=== PATIENT | male | born 1955 | race Caucasian/White ===

== ENCOUNTER 2018-10-18 09:22 | Inpatient (IN) ==
--- NOTE | 2018-10-18 09:47 | Emergency Department Note ---
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 The patient reports he does not have history of blood clot in the lung. He denies alcohol, tobacco, or drug use. Per EMS: The patient is diaphoretic. He has history of hypertension and boarder line diabetes. His leg has been hurting him for months. The patient has not been able to lay flat. Home Medications Home Medications Medication Instructions Recorded Confirmed Type aspirin 81 mg PO DAILY 10/18/18 10/18/18 History atenolol 50 mg PO DAILY 10/18/18 10/18/18 History dimenhydrinate [Dramamine] 50 mg PO Q8H PRN 10/18/18 10/18/18 History hydrocodone-acetaminophen 1 tab PO Q6H PRN 10/18/18 10/18/18 History lisinopril 20 mg PO DAILY 10/18/18 10/18/18 History naproxen 250 mg PO BID PRN 10/18/18 10/18/18 History Allergies Allergy/AdvReac Type Severity Reaction Status Date / Time No Known Allergies Allergy Unverified 10/18/18 10:31 Past Med/Surg History Medical History Chronic back pain (Chronic) Pre-diabetes (Chronic) HTN (hypertension) (Chronic) Surgical History S/P tonsillectomy (Chronic) Family History Other Diabetes Heart disease Social History Preferred Language: Khmer Communication Ability: Unable 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 and A total of 10 systems reviewed and were otherwise negative Physical Exam Vital Signs Vital Signs - 24 hr 10/18/18 09:25 10/18/18 09:29 10/18/18 09:33 Temperature 37 C Temperature Source Oral Sepsis Recent Fever Within 48 Hours No Sepsis New/Unexplained Change in Mental Status No Sepsis Action Taken by Nursing No Action Required Pulse Rate 76 80 84 Pulse Rate [Apical] Pulse Rate from SpO2 Sensor 80 84 Respiratory Rate 18 29 H 28 H Respiratory Effort / Characteristics Non-Labored Respiratory Depth Normal Blood Pressure 155/95 H 155/95 H Blood Pressure [Left Arm] Blood Pressure Mean 115 115 Blood Pressure Mean [Left Arm] Pulse Oximetry 98 93 98 Oxygen Delivery Method Room Air Fraction of Inspired Oxygen SaO2/FiO2 Ratio 10/18/18 09:45 10/18/18 09:46 10/18/18 09:53 Temperature Temperature Source Sepsis Recent Fever Within 48 Hours Sepsis New/Unexplained Change in Mental Status Sepsis Action Taken by Nursing Pulse Rate 76 74 70 Pulse Rate [Apical] Pulse Rate from SpO2 Sensor 77 73 Respiratory Rate 24 24 26 H Respiratory Effort / Characteristics Spontaneous Labored Respiratory Depth Normal Blood Pressure 128/97 Blood Pressure [Left Arm] Blood Pressure Mean 107 Blood Pressure Mean [Left Arm] Pulse Oximetry 88 L 95 95 Oxygen Delivery Method Fraction of Inspired Oxygen 50 SaO2/FiO2 Ratio 10/18/18 10:00 10/18/18 10:11 10/18/18 10:12 Temperature Temperature Source Sepsis Recent Fever Within 48 Hours Sepsis New/Unexplained Change in Mental Status Sepsis Action Taken by Nursing Pulse Rate 70 Pulse Rate [Apical] Pulse Rate from SpO2 Sensor Respiratory Rate 26 H Respiratory Effort / Characteristics Respiratory Depth Blood Pressure Blood Pressure [Left Arm] Blood Pressure Mean Blood Pressure Mean [Left Arm] Pulse Oximetry 100 100 Oxygen Delivery Method BiPAP BiPAP Fraction of Inspired Oxygen 40 SaO2/FiO2 Ratio 250 10/18/18 10:15 10/18/18 10:22 10/18/18 10:30 Temperature Temperature Source Sepsis Recent Fever Within 48 Hours Sepsis New/Unexplained Change in Mental Status Sepsis Action Taken by Nursing Pulse Rate 69 67 67 Pulse Rate [Apical] Pulse Rate from SpO2 Sensor 68 67 69 Respiratory Rate 21 25 H 21 Respiratory Effort / Characteristics Respiratory Depth Blood Pressure 101/77 Blood Pressure [Left Arm] Blood Pressure Mean 85 Blood Pressure Mean [Left Arm] Pulse Oximetry 98 98 90 Oxygen Delivery Method Fraction of Inspired Oxygen SaO2/FiO2 Ratio 10/18/18 10:32 10/18/18 10:45 10/18/18 11:00 Temperature Temperature Source Sepsis Recent Fever Within 48 Hours Sepsis New/Unexplained Change in Mental Status Sepsis Action Taken by Nursing Pulse Rate 67 64 Pulse Rate [Apical] 63 Pulse Rate from SpO2 Sensor 70 88 Respiratory Rate 27 H 22 22 Respiratory Effort / Characteristics Respiratory Depth Blood Pressure 110/85 Blood Pressure [Left Arm] 98/68 L Blood Pressure Mean 93 Blood Pressure Mean [Left Arm] 78 Pulse Oximetry 92 Oxygen Delivery Method BiPAP Fraction of Inspired Oxygen SaO2/FiO2 Ratio 10/18/18 11:26 10/18/18 11:31 10/18/18 11:40 Temperature Temperature Source Sepsis Recent Fever Within 48 Hours Sepsis New/Unexplained Change in Mental Status Sepsis Action Taken by Nursing Pulse Rate 63 Pulse Rate [Apical] 65 68 Pulse Rate from SpO2 Sensor Respiratory Rate 21 20 20 Respiratory Effort / Characteristics Non-Labored Spontaneous Respiratory Depth Normal Blood Pressure Blood Pressure [Left Arm] 98/68 L 82/67 L Blood Pressure Mean Blood Pressure Mean [Left Arm] 78 72 Pulse Oximetry 94 90 Oxygen Delivery Method BiPAP BiPAP Fraction of Inspired Oxygen 40 SaO2/FiO2 Ratio 10/18/18 12:00 Temperature Temperature Source Sepsis Recent Fever Within 48 Hours Sepsis New/Unexplained Change in Mental Status Sepsis Action Taken by Nursing Pulse Rate Pulse Rate [Apical] 67 Pulse Rate from SpO2 Sensor Respiratory Rate 30 H Respiratory Effort / Characteristics Respiratory Depth Blood Pressure Blood Pressure [Left Arm] 118/89 Blood Pressure Mean Blood Pressure Mean [Left Arm] 98 Pulse Oximetry Oxygen Delivery Method BiPAP Fraction of Inspired Oxygen SaO2/FiO2 Ratio GENERAL: The patient is awake and alert. He is very anxious appearing. He is diaphoretic and cyanotic. EYES: The conjunctivae are clear. The pupils are round and reactive. EARS, NOSE, MOUTH AND THROAT: The nose is without any evidence of any deformity. Mucous membranes are moist tongue is midline NECK: The neck is nontender and supple. RESPIRATORY: Shallow respirations were noted. There were diminished breath sounds noted throughout with rales in all lung dunlap. There is very poor air movement noted. CARDIOVASCULAR: Regular rate and rhythm noted there no murmurs rubs or gallops normal S1 normal S2 GASTROINTESTINAL: The abdomen is soft. Bowel sounds are present in all quadrants. Abdomen is nontender MUSCULOSKELETAL/EXTREMITIES: There is no evidence of gross deformity full range of motion is noted in the hips and shoulders SKIN: Peripheral cyanosis was noted. There is pedal edema bilaterally with cyanosis in the lower extremities. Edema appears to go the majority of both lower extremities. There is also abdominal wall edema. There are excoriations and sores over both lower extremities. NEUROLOGIC: Patient is awake alert and oriented x3. Course 0929: The patient was evaluated in room A9B but was moved to room A1 due to patient acuity. A complete history and physical exam was performed. 1053: Upon reevaluation, the patient is resting comfortably. I discussed laboratory and radiographic results with him. The patient verbalized agreement of the treatment plan. The patient will be evaluated for further management and care. 1105: I discussed the patients case with Dr. Casey, [facility]. 1113: I discussed the patients case with Shaheen Bullock. 1237: The patient suffered a cardiac arrest and required intubation with the ICU team. 1259: I discussed the patient's case with Dr. Rodriguez, Neurology. He agrees with the transfer. Consultations Consultation #1: I discussed the patients case with Dr. Casey, [facility]. Time: 11:05 Consultation #2: I discussed the patients case with Shaheen Bullock. Time: 11:13 Consultation #3: I discussed the patient's case with Dr. Rodriguez, Neurology. He agrees with the transfer. Time: 12:59 Administered Medications Discontinued Medications Fentanyl Citrate (Fentanyl Citrate) 50 mcg IV Q2H PRN PRN Reason: Moderate Pain (4,5,6) Stop: 11/01/18 20:35 Last Admin: 10/19/18 03:59 Dose: 50 mcg Documented by: [id number] Admin: 10/18/18 23:23 Dose: 50 mcg Documented by: [id number] Furosemide (Lasix) Confirm Administered Dose 40 mg IV .STK-MED ONE Stop: 10/18/18 11:28 Last Admin: 10/18/18 11:29 Dose: 40 mg Documented by: [id number] Lorazepam (Ativan) 1 mg in 2 mls @ 2 mls/min IV NOW STA Stop: 10/18/18 10:33 Last Admin: 10/18/18 10:36 Dose: 2 mls/min Documented by: [id number] Furosemide 40 mg/ Syringe 4 mls @ 4 mls/min IV ONE ONE Stop: 10/18/18 11:08 Last Admin: 10/18/18 11:32 Dose: Not Given Documented by: [id number] Sodium Chloride (Nss 1000ml) 1,000 mls @ 999 mls/hr IV .Q1H1M DEVEN Stop: 10/18/18 13:15 Last Infusion: 10/18/18 13:15 Dose: 0 mls/hr Documented by: [id number] Admin: 10/18/18 12:08 Dose: 999 mls/hr Documented by: [id number] Vancomycin HCl 2,500 mg/ (Sodium Chloride) 550 mls @ 200 mls/hr IV ONE ONE Stop: 10/18/18 15:14 Last Infusion: 10/18/18 15:50 Dose: 0 mls/hr Documented by: [id number] Admin: 10/18/18 13:00 Dose: 200 mls/hr Documented by: [id number] Piperacillin Sod/Tazobactam (Sod 4.5 gm/ Dextrose) 120 mls @ 200 mls/hr IV ONE ONE; Protocol Stop: 10/18/18 13:05 Last Infusion: 10/18/18 13:35 Dose: 0 mls/hr Documented by: [id number] Admin: 10/18/18 13:00 Dose: 200 mls/hr Documented by: [id number] Norepinephrine Bitartrate 8 mg (/ Dextrose) 508 mls @ 32.92 mls/hr IV .[id number] DEVEN; Protocol Stop: 11/17/18 13:08 Last Titration: 10/18/18 22:53 Dose: 0.08 mcg/kg/min, 32.9 mls/hr Documented by: [id number] Titration: 10/18/18 20:19 Dose: 0.1 mcg/kg/min, 41.2 mls/hr Documented by: [id number] Titration: 10/18/18 19:17 Dose: 0.025 mcg/kg/min, 10.3 mls/hr Documented by: [id number] Cosigned by: [id number] Titration: 10/18/18 17:55 Dose: 0.025 mcg/kg/min, 10.3 mls/hr Documented by: [id number] Admin: 10/18/18 15:12 Dose: 0.1 mcg/kg/min, 41.2 mls/hr Documented by: [id number] Cosigned by: [id number] Sodium Bicarbonate 150 meq/ (Dextrose) 1,150 mls @ 100 mls/hr IV .[id number] DEVEN Stop: 11/17/18 13:29 Last Admin: 10/19/18 00:33 Dose: 100 mls/hr Documented by: [id number] Infusion: 10/19/18 00:33 Dose: 100 mls/hr Documented by: [id number] Infusion: 10/18/18 19:17 Dose: 100 mls/hr Documented by: [id number] Admin: 10/18/18 15:13 Dose: 100 mls/hr Documented by: [id number] Epinephrine HCl 4 mg/ Dextrose 254 mls @ 123.44 mls/hr IV .Q2H4M DEVEN; Protocol Stop: 11/17/18 13:25 Last Titration: 10/18/18 23:18 Dose: 0.25 mcg/kg/min, 102.9 mls/hr Documented by: [id number] Titration: 10/18/18 21:28 Dose: 0.3 mcg/kg/min, 123.4 mls/hr Documented by: [id number] Titration: 10/18/18 20:19 Dose: 0.3 mcg/kg/min, 123.4 mls/hr Documented by: [id number] Titration: 10/18/18 19:17 Dose: 0.25 mcg/kg/min, 102.9 mls/hr Documented by: [id number] Cosigned by: [id number] Admin: 10/18/18 19:12 Dose: 0.2 mcg/kg/min, 82.3 mls/hr Documented by: [id number] Cosigned by: [id number] Titration: 10/18/18 19:12 Dose: 0.2 mcg/kg/min, 82.3 mls/hr Documented by: [id number] Cosigned by: [id number] Titration: 10/18/18 17:55 Dose: 0.2 mcg/kg/min, 82.3 mls/hr Documented by: [id number] Admin: 10/18/18 16:22 Dose: 0.1 mcg/kg/min, 41.2 mls/hr Documented by: [id number] Titration: 10/18/18 16:22 Dose: 0.1 mcg/kg/min, 41.2 mls/hr Documented by: [id number] Admin: 10/18/18 13:25 Dose: 0.02 mcg/kg/min, 8.2 mls/hr Documented by: [id number] Cosigned by: [id number] Propofol (Diprivan) 1,000 mg in 100 mls @ 3.24 mls/hr IV .Q24H DEVEN; Protocol Stop: 10/21/18 13:59 Last Titration: 10/18/18 21:25 Dose: 5 mcg/kg/min, 3.2 mls/hr Documented by: [id number] Titration: 10/18/18 19:17 Dose: 5 mcg/kg/min, 3.2 mls/hr Documented by: [id number] Cosigned by: [id number] Admin: 10/18/18 15:13 Dose: 5 mcg/kg/min, 3.2 mls/hr Documented by: [id number] Cosigned by: [id number] Piperacillin Sod/Tazobactam (Sod 4.5 gm/ Dextrose) 120 mls @ 30 mls/hr IV Q8H DEVEN; Protocol Stop: 10/20/18 12:59 Last Admin: 10/19/18 02:03 Dose: 30 mls/hr Documented by: [id number] Infusion: 10/18/18 20:01 Dose: 30 mls/hr Documented by: [id number] Infusion: 10/18/18 19:17 Dose: 30 mls/hr Documented by: [id number] Admin: 10/18/18 16:00 Dose: 30 mls/hr Documented by: [id number] Vasopressin 20 units/ Sodium (Chloride) 101 mls @ 12.12 mls/hr IV .Q8H20M DEVEN Stop: 11/17/18 15:14 Last Admin: 10/19/18 00:33 Dose: 0.04 unit/min, 12.1 mls/hr Documented by: [id number] Cosigned by: [id number] Infusion: 10/19/18 00:31 Dose: 0.04 unit/min, 12.1 mls/hr Documented by: [id number] Infusion: 10/18/18 23:05 Dose: 0.04 unit/min, 12.1 mls/hr Documented by: [id number] Infusion: 10/18/18 19:17 Dose: 0.04 unit/min, 12.1 mls/hr Documented by: [id number] Cosigned by: [id number] Admin: 10/18/18 16:00 Dose: 0.04 unit/min, 12.1 mls/hr Documented by: [id number] Cosigned by: [id number] Dobutamine HCl/Dextrose (Dobutamine / D5w) 500 mg in 250 mls @ 16.2 mls/hr IV .[id number] DEVEN; Protocol Stop: 11/17/18 15:27 Last Titration: 10/19/18 01:37 Dose: 5 mcg/kg/min, 16.2 mls/hr Documented by: [id number] Cosigned by: [id number] Titration: 10/18/18 19:17 Dose: 5 mcg/kg/min, 16.2 mls/hr Documented by: [id number] Cosigned by: [id number] Admin: 10/18/18 16:00 Dose: 5 mcg/kg/min, 16.2 mls/hr Documented by: [id number] Cosigned by: [id number] Calcium Chloride 1,000 mg/ (Sodium Chloride) 60 mls @ 240 mls/hr IV NOW STA Stop: 10/18/18 20:28 Last Infusion: 10/18/18 20:56 Dose: 240 mls/hr Documented by: [id number] Admin: 10/18/18 20:41 Dose: 240 mls/hr Documented by: [id number] Ascorbic Acid 1,500 mg/Thiamine HCl 100 mg/ Sodium Chloride 104 mls @ 207 mls/hr IV Q6H [facility] Stop: 10/22/18 15:31 Last Infusion: 10/19/18 02:34 Dose: 207 mls/hr Documented by: [id number] Admin: 10/19/18 02:03 Dose: 207 mls/hr Documented by: [id number] Infusion: 10/18/18 21:36 Dose: 207 mls/hr Documented by: [id number] Admin: 10/18/18 21:05 Dose: 207 mls/hr Documented by: [id number] Hydrocortisone Sodium (Succinate 50 mg/ Syringe) 1 mls @ 4 mls/min IV Q6H DEVEN Stop: 11/18/18 02:59 Last Admin: 10/19/18 02:03 Dose: 4 mls/min Documented by: [id number] Acetaminophen (Ofirmev) 1,000 mg in 100 mls @ 400 mls/hr IV Q8H PRN PRN Reason: Fever Stop: 11/17/18 20:43 Last Infusion: 10/18/18 22:32 Dose: 400 mls/hr Documented by: [id number] Admin: 10/18/18 22:17 Dose: 400 mls/hr Documented by: [id number] Hydrocortisone Sodium (Succinate 100 mg/ Syringe) 2 mls @ 4 mls/min IV NOW STA Stop: 10/18/18 21:43 Last Admin: 10/18/18 21:46 Dose: 4 mls/min Documented by: [id number] Calcium Chloride 1,000 mg/ (Sodium Chloride) 60 mls @ 240 mls/hr IV NOW STA Stop: 10/19/18 01:12 Last Infusion: 10/19/18 01:38 Dose: 240 mls/hr Documented by: [id number] Admin: 10/19/18 01:23 Dose: 240 mls/hr Documented by: [id number] Morphine Sulfate (Morphine Sulf/Nss) 100 mg in 100 mls @ 0 mls/hr IV .Q0M DEVEN; Protocol Stop: 11/02/18 04:59 Last Admin: 10/19/18 05:29 Dose: 2 mg/hr, 2 mls/hr Documented by: [id number] Cosigned by: [id number] Lorazepam (Ativan) 0.5 mg in 1 mls @ 0.5 mls/min IV UD PRN PRN Reason: Anxiety/Agitation Stop: 11/18/18 05:08 Last Admin: 10/19/18 05:28 Dose: 0.5 mls/min Documented by: [id number] Ioversol (Optiray 320 125ml) 120 ml IV ONCE PRN PRN Reason: Interaction Checking Stop: 10/22/18 11:47 Last Admin: 10/18/18 11:49 Dose: 120 ml Documented by: [id number] Midazolam HCl (Versed) 2 mg IV Q2H PRN PRN Reason: agitation/anxiety Stop: 11/17/18 20:35 Last Admin: 10/19/18 02:03 Dose: 1 mg Documented by: [id number] Miscellaneous () Confirm Administered Dose 1 ea .ROUTE .STK-MED ONE Stop: 10/18/18 12:20 Last Admin: 10/18/18 12:30 Dose: 1 ea Documented by: [id number] Propofol (Diprivan) Confirm Administered Dose 200 mg IV .STK-MED ONE Stop: 10/18/18 12:21 Last Admin: 10/18/18 12:30 Dose: Not Given Documented by: [id number] Propofol (Diprivan) Confirm Administered Dose 1,000 mg IV .STK-MED ONE Stop: 10/18/18 12:27 Last Admin: 10/18/18 12:45 Dose: Not Given Documented by: [id number] Sodium Bicarbonate (Sodium Bicarbonate 8.4%) 50 meq IV NOW STA Stop: 10/18/18 15:01 Last Admin: 10/18/18 15:13 Dose: 50 meq Documented by: [id number] Sodium Bicarbonate (Sodium Bicarbonate 8.4%) 50 meq IV NOW STA Stop: 10/18/18 15:02 Last Admin: 10/18/18 15:13 Dose: 50 meq Documented by: [id number] Sodium Bicarbonate (Sodium Bicarbonate 8.4%) 100 meq IV NOW STA Stop: 10/18/18 20:13 Last Admin: 10/18/18 20:19 Dose: 100 meq Documented by: [id number] Sodium Bicarbonate (Sodium Bicarbonate 8.4%) Confirm Administered Dose 100 meq .ROUTE .STK-MED ONE Stop: 10/18/18 20:16 Last Admin: 10/18/18 20:25 Dose: 100 meq Documented by: [id number] Sodium Bicarbonate (Sodium Bicarbonate 8.4%) 100 meq IV NOW STA Stop: 10/19/18 00:09 Last Admin: 10/19/18 00:33 Dose: 100 meq Documented by: [id number] Sodium Bicarbonate (Sodium Bicarbonate 8.4%) Confirm Administered Dose 50 meq .ROUTE .STK-MED ONE Stop: 10/19/18 00:13 Last Admin: 10/19/18 00:33 Dose: 50 meq Documented by: [id number] Medical Decision Making Differential Diagnosis Differential diagnosis: Etiologies such as infections, reactive airway disease, COPD, pneumonia, pleural effusion, pulmonary edema, ARDS, pneumothorax, CHF, cardiac ischemia, cardiac tamponade, dysrhythmia, anemia, pulmonary embolism, musculoskeletal, gastrointestinal process, as well as others were entertained. Medical Records Attestation: I reviewed the patient's medical records. Home Medications Current Medication List: was personally reviewed by me (No known home medicati ons ) Laboratory Data Attestation: I reviewed the patient's lab results. Result diagrams: 10/19/18 04:06 10/19/18 04:06 Lab Results 10/18/18 10/18/18 10/18/18 Range/Units 10:08 10:08 10:08 WBC 11.47 H (4.8-10.8) K/uL RBC 6.03 (4.7-6.1) M/uL Hgb 14.6 (14.0-18.0) g/dL Hct 47.3 (42-52) % MCV 78.4 L (80-100) fL MCH 24.2 L (25-34) pg MCHC 30.9 L (32-36) g/dL RDW Std Deviation 50.1 H (36.4-46.3) fL RDW Coeff of Lauro 17.8 H (11.5-14.5) % Plt Count 195 (130-400) K/uL MPV 10.5 H (7.4-10.4) fL Neutrophils % (Manual) 83.5 % Lymphocytes % (Manual) 4.3 % Monocytes % (Manual) 6.1 % Metamyelocytes % (Man) 6.1 % Neutrophils # (Manual) 9.58 H (1.4-6.5) K/uL Total Absolute Neuts 9.58 H (1.4-6.5) K/uL Lymphocytes # (Manual) 0.49 L (1.2-3.4) K/uL Total Abs Lymphocytes 0.49 L (1.2-3.4) K/uL Monocytes # (Manual) 0.70 H (0.11-0.59) K/uL Metamyelocytes # (Man) 0.70 H (0-0) K/uL RBC Morphology Unremarkable ESR (0-14) mm/hr PT 18.8 H (9.0-12.0) Seconds INR 1.9 H (0.9-1.1) APTT 31.9 H (21.0-31.0) Seconds PTT Ratio 1.2 VBG pH (7.36-7.41) VBG pCO2 (38-50) mmHg VBG pO2 mmHg VBG HCO3 mmol/L VBG O2 Saturation % VBG Base Excess mEq/L Barometric Pressure mm/Hg Sodium (136-145) mmol/L Potassium (3.5-5.1) mmol/L Chloride (98-107) mmol/L Carbon Dioxide (21-32) mmol/L Anion Gap (3-11) BUN (7-18) mg/dl Creatinine (0.6-1.4) mg/dl Est Cr Clr Drug Dosing ml/min Est GFR ( Amer) Est GFR (Non-Af Amer) BUN/Creatinine Ratio (10-20) Glucose (70-99) mg/dl Lactate 10.3 H* (0.4-2.0) mmol/L Calcium (8.5-10.1) mg/dl Phosphorus (2.5-4.9) mg/dl Magnesium (1.8-2.4) mg/dl Total Bilirubin (0.2-1) mg/dl AST (15-37) U/L ALT (12-78) U/L Alkaline Phosphatase (45-117) U/L Total Creatine Kinase (39-308) U/L CK-MB (CK-2) (0.5-3.6) ng/ml CK/CKMB % Calc (0-3.0) Troponin I (0-0.045) ng/ml C-Reactive Protein (0-0.29) mg/dl NT-Pro-B Natriuret Pep (0-900) pg/ml Total Protein (6.4-8.2) gm/dl Albumin (3.4-5.0) gm/dl Globulin (2.5-4.0) gm/dl Albumin/Globulin Ratio (0.9-2) Procalcitonin (0-0.5) ng/ml Urine Color Urine Appearance (Clear) Urine pH (4.5-7.5) Ur Specific [place] (1.000-1.030) Urine Protein (Negative) Urine Glucose (UA) (Negative) Urine Ketones (Negative) Urine Blood (Negative) Urine Nitrite (Negative) Urine Bilirubin (Negative) Urine Urobilinogen (Negative) Ur Leukocyte Esterase (Negative) Urine WBC (Auto) (0-5) /hpf Urine RBC (Auto) (0-4) /hpf U Hyaline Cast (Auto) (0-5) /lpf U Epithel Cells (Auto) (0-5) /lpf Urine Bacteria (Auto) (Negative) 10/18/18 10/18/18 10/18/18 Range/Units 10:08 10:08 10:08 WBC (4.8-10.8) K/uL RBC (4.7-6.1) M/uL Hgb (14.0-18.0) g/dL Hct (42-52) % MCV (80-100) fL MCH (25-34) pg MCHC (32-36) g/dL RDW Std Deviation (36.4-46.3) fL RDW Coeff of Lauro (11.5-14.5) % Plt Count (130-400) K/uL MPV (7.4-10.4) fL Neutrophils % (Manual) % Lymphocytes % (Manual) % Monocytes % (Manual) % Metamyelocytes % (Man) % Neutrophils # (Manual) (1.4-6.5) K/uL Total Absolute Neuts (1.4-6.5) K/uL Lymphocytes # (Manual) (1.2-3.4) K/uL Total Abs Lymphocytes (1.2-3.4) K/uL Monocytes # (Manual) (0.11-0.59) K/uL Metamyelocytes # (Man) (0-0) K/uL RBC Morphology ESR 16 H (0-14) mm/hr PT (9.0-12.0) Seconds INR (0.9-1.1) APTT (21.0-31.0) Seconds PTT Ratio VBG pH 7.12 L (7.36-7.41) VBG pCO2 47 (38-50) mmHg VBG pO2 31 mmHg VBG HCO3 15 mmol/L VBG O2 Saturation < 60.0 % VBG Base Excess -14.2 mEq/L Barometric Pressure 732.5 mm/Hg Sodium 137 (136-145) mmol/L Potassium 4.2 (3.5-5.1) mmol/L Chloride 104 (98-107) mmol/L Carbon Dioxide 16 L (21-32) mmol/L Anion Gap 18.0 H (3-11) BUN 25 H (7-18) mg/dl Creatinine 1.64 H (0.6-1.4) mg/dl Est Cr Clr Drug Dosing 53.3 ml/min Est GFR ( Amer) 50.5 Est GFR (Non-Af Amer) 43.5 BUN/Creatinine Ratio 15.1 (10-20) Glucose 134 H (70-99) mg/dl Lactate (0.4-2.0) mmol/L Calcium 8.7 (8.5-10.1) mg/dl Phosphorus 5.4 H (2.5-4.9) mg/dl Magnesium 2.0 (1.8-2.4) mg/dl Total Bilirubin 2.2 H (0.2-1) mg/dl AST 28 (15-37) U/L ALT 21 (12-78) U/L Alkaline Phosphatase 64 (45-117) U/L Total Creatine Kinase 121 (39-308) U/L CK-MB (CK-2) 5.5 H (0.5-3.6) ng/ml CK/CKMB % Calc 4.5 H (0-3.0) Troponin I 0.901 H* (0-0.045) ng/ml C-Reactive Protein 6.78 H (0-0.29) mg/dl NT-Pro-B Natriuret Pep > [id number] H (0-900) pg/ml Total Protein 7.2 (6.4-8.2) gm/dl Albumin 3.5 (3.4-5.0) gm/dl Globulin 3.7 (2.5-4.0) gm/dl Albumin/Globulin Ratio 0.9 (0.9-2) Procalcitonin (0-0.5) ng/ml Urine Color Urine Appearance (Clear) Urine pH (4.5-7.5) Ur Specific [place] (1.000-1.030) Urine Protein (Negative) Urine Glucose (UA) (Negative) Urine Ketones (Negative) Urine Blood (Negative) Urine Nitrite (Negative) Urine Bilirubin (Negative) Urine Urobilinogen (Negative) Ur Leukocyte Esterase (Negative) Urine WBC (Auto) (0-5) /hpf Urine RBC (Auto) (0-4) /hpf U Hyaline Cast (Auto) (0-5) /lpf U Epithel Cells (Auto) (0-5) /lpf Urine Bacteria (Auto) (Negative) 10/18/18 10/18/18 Range/Units 10:08 11:25 WBC (4.8-10.8) K/uL RBC (4.7-6.1) M/uL Hgb (14.0-18.0) g/dL Hct (42-52) % MCV (80-100) fL MCH (25-34) pg MCHC (32-36) g/dL RDW Std Deviation (36.4-46.3) fL RDW Coeff of Lauro (11.5-14.5) % Plt Count (130-400) K/uL MPV (7.4-10.4) fL Neutrophils % (Manual) % Lymphocytes % (Manual) % Monocytes % (Manual) % Metamyelocytes % (Man) % Neutrophils # (Manual) (1.4-6.5) K/uL Total Absolute Neuts (1.4-6.5) K/uL Lymphocytes # (Manual) (1.2-3.4) K/uL Total Abs Lymphocytes (1.2-3.4) K/uL Monocytes # (Manual) (0.11-0.59) K/uL Metamyelocytes # (Man) (0-0) K/uL RBC Morphology ESR (0-14) mm/hr PT (9.0-12.0) Seconds INR (0.9-1.1) APTT (21.0-31.0) Seconds PTT Ratio VBG pH (7.36-7.41) VBG pCO2 (38-50) mmHg VBG pO2 mmHg VBG HCO3 mmol/L VBG O2 Saturation % VBG Base Excess mEq/L Barometric Pressure mm/Hg Sodium (136-145) mmol/L Potassium (3.5-5.1) mmol/L Chloride (98-107) mmol/L Carbon Dioxide (21-32) mmol/L Anion Gap (3-11) BUN (7-18) mg/dl Creatinine (0.6-1.4) mg/dl Est Cr Clr Drug Dosing ml/min Est GFR ( Amer) Est GFR (Non-Af Amer) BUN/Creatinine Ratio (10-20) Glucose (70-99) mg/dl Lactate (0.4-2.0) mmol/L Calcium (8.5-10.1) mg/dl Phosphorus (2.5-4.9) mg/dl Magnesium (1.8-2.4) mg/dl Total Bilirubin (0.2-1) mg/dl AST (15-37) U/L ALT (12-78) U/L Alkaline Phosphatase (45-117) U/L Total Creatine Kinase (39-308) U/L CK-MB (CK-2) (0.5-3.6) ng/ml CK/CKMB % Calc (0-3.0) Troponin I (0-0.045) ng/ml C-Reactive Protein (0-0.29) mg/dl NT-Pro-B Natriuret Pep (0-900) pg/ml Total Protein (6.4-8.2) gm/dl Albumin (3.4-5.0) gm/dl Globulin (2.5-4.0) gm/dl Albumin/Globulin Ratio (0.9-2) Procalcitonin 8.72 H (0-0.5) ng/ml Urine Color [place] Urine Appearance Clear (Clear) Urine pH 5.0 (4.5-7.5) Ur Specific [place] 1.026 (1.000-1.030) Urine Protein 1+ H (Negative) Urine Glucose (UA) Trace H (Negative) Urine Ketones Negative (Negative) Urine Blood Negative (Negative) Urine Nitrite Positive A (Negative) Urine Bilirubin Negative (Negative) Urine Urobilinogen Negative (Negative) Ur Leukocyte Esterase Negative (Negative) Urine WBC (Auto) 1-5 (0-5) /hpf Urine RBC (Auto) 0-4 (0-4) /hpf U Hyaline Cast (Auto) 5-10 H (0-5) /lpf U Epithel Cells (Auto) 20-30 H (0-5) /lpf Urine Bacteria (Auto) Negative (Negative) Imaging Data Radiologist's Impression: Radiology results as stated below per my review and the radiologist's interpretation: XR chest 1V portable CLINICAL HISTORY: Sepsis dyspnea COMPARISON STUDY: No previous studies for comparison. FINDINGS: Mild cardiomegaly. Prominent pulmonary vasculature. Diminished inspiratory volumes. No focal infiltrate. IMPRESSION: Mild pulmonary edema. The above report was generated using voice recognition software. It may contain grammatical, syntax or spelling errors. Electronically signed by: Jayson Gupta M.D. 10/18/2018 10:17 AM ECG Data Attestation: I personally reviewed and interpreted this ECG as follows: Indication: SOB/dyspnea Rate (beats per minute): 78 Rhythm: normal sinus Findings: + other (Diffused T wave flattening ) and + Q waves (Inferior); no ectopy Comparison ECG Date: no prior available Blood Pressure Blood Pressure Findings: Normal blood pressure Blood Pressure Disposition: did not require urgent referral MDM Narrative The patient is a 62-year-old male who presented to the emergency department for an evaluation of difficulty breathing. The patient does not have any significant past medical history although I suspect this is because the patient does not see a physician regularly. According to his family members he is been having increasing shortness of breath as well as body edema. He has chronic skin changes in his lower extremities which appear to be consistent with stasis dermatitis. I also has ulcerations on his legs. His history and physical exam appear to be more consistent with pulmonary edema. He had high blood pressure and rales noted throughout. He was initially treated with BiPAP supplemental oxygen and Lasix. I discussed the patient's initial laboratory findings with the wage and salary specialist. The feels that the patient was very sick but it was not clear if this was a cardiogenic source or if the patient was actually developing sepsis. He was cultured. I discussed his case with the on-call [facility] hospitalist group. Antibiotics were ordered by the admitting team. The patient was evaluated in the emergency department by the wage and salary specialist and was found to be in worsening extremitas with his breathing. For this reason he was intubated by the wage and salary specialist team. A central line was also prepped but before the patient could receive the central line he developed bradycardia and then had a cardiac arrest. I was present for the cardiac arrest as it was called overhead. Patient was given epinephrine and bicarbonate for pre-existing acidosis. The patient had returns pulses. The patient was reevaluated multiple times. His condition is very tenuous. The patient was transferred to the ICU. Impression & Plan Respiratory distress, Respiratory arrest, Cardiogenic shock, Pulmonary edema, Ascites, Anasarca, Metabolic acidosis Critical Care Time Critical Care Time: Yes Total Critical Care Time: 120 I have personally spent 120 minutes of critical care time in the direct management of this patient. This includes bedside care, interpretation of diagnostic studies, and testing, discussion with consultants, patient, and family members, and other required patient management activities. This 120 minutes is in excess of all separately billable procedures. Discharge Plan Visit Data *Final* Discharge Date/Time: 10/18/18 13:45 Chief Complaint: Swelling/Edema to Extremity Stated Complaint: cellulitis ED Provider: Jair Quiles Discharge Problem: Respiratory distress, Respiratory arrest, Cardiogenic shock, Pulmonary edema, Ascites, Anasarca, Metabolic acidosis Patient Disposition: Admitted As Inpatient Discharge Instructions Interventions: ED Discharge Assessment Last Done: 10/18/18 13:45 Discharge Problem: Pulmonary edema Qualifiers: Chronicity: acute Qualified Code(s): J81.0 - Acute pulmonary edema Ascites Qualifiers: Ascites type: other type Qualified Code(s): R18.8 - Other ascites The scribe's documentation has been prepared under my direction and personally reviewed by me in its entirety. I confirm that the note above accurately reflects all work, treatment, procedures, and medical decision making performed by me.
--- NOTE | 2018-10-18 10:18 | XRay Report ---
XR chest 1V portable CLINICAL HISTORY: Sepsis dyspnea COMPARISON STUDY: No previous studies for comparison. FINDINGS: Mild cardiomegaly. Prominent pulmonary vasculature. Diminished inspiratory volumes. No foca l infiltrate. IMPRESSION: Mild pulmonary edema. The above report was generated using voice recognition software. It may contain grammatical, syntax or spelling errors. Electronically signed by: Jayson Gupta M.D. 10/18/2018 10:17 AM
[2018-10-18 10:25] LABS: Base Excess VBG -14.2 mEq/L; HCO3 VBG 15 mmol/L; PCO2 VBG 47 mmHg (38-50); PO2 VBG 31 mmHg; pH VBG 7.12 (7.36-7.41)
[2018-10-18 10:27] LABS: Oxygen Saturation VBG < 60.0 %
[2018-10-18 10:29] LABS: Hematocrit (blood only) 47.3 % (42-52); Hemoglobin 14.6 g/dL (14.0-18.0); Mean Corpuscular Hgb Conc 30.9 g/dL (32-36); Mean Corpuscular Volume 78.4 fL (80-100); Mean Platelet Volume 10.5 fL (7.4-10.4); Platelet Count 195 K/uL (130-400); RDW Coefficient of Variation 17.8 % (11.5-14.5); RDW Standard Deviation 50.1 fL (36.4-46.3); Red Blood Count 6.03 M/uL (4.7-6.1); White Blood Count 11.47 K/uL (4.8-10.8)
[2018-10-18] MEDS ORDERED: LORazepam 1 MG/2 ML VIAL IV STA (10:32)
[2018-10-18 10:39] LABS: INR 1.9 (0.9-1.1); Partial Thromboplastin Ratio 1.2; Partial Thromboplastin Time 31.9 Seconds (21.0-31.0); Prothrombin Time 18.8 Seconds (9.0-12.0)
[2018-10-18 10:40] LABS: Alanine Aminotransferase 21 U/L (12-78); Albumin Level 3.5 gm/dl (3.4-5.0); Aspartate Aminotransferase 28 U/L (15-37); BUN Creatinine Ratio 15.1 (10-20); Blood Urea Nitrogen 25 mg/dl (7-18); C Reactive Protein 6.78 mg/dl (0-0.29); Calcium 8.7 mg/dl (8.5-10.1); Carbon Dioxide 16 mmol/L (21-32); Chloride 104 mmol/L (98-107); Creatinine Clr Calc Pharmacy 53.3 ml/min; Est GFR (African American) 50.5; Est GFR (Non-African American) 43.5; Glucose 134 mg/dl (70-99); Potassium 4.2 mmol/L (3.5-5.1); Sodium 137 mmol/L (136-145)
[2018-10-18 10:55] LABS: Albumin Globulin Ratio 0.9 (0.9-2); Alkaline Phosphatase 64 U/L (45-117); Bilirubin,Total 2.2 mg/dl (0.2-1); Creatine Kinase 121 U/L (39-308); Creatine Kinase MB 5.5 ng/ml (0.5-3.6); Globulin 3.7 gm/dl (2.5-4.0); NT Pro B Type Natriuretic Pept > 35000 pg/ml (0-900); Phosphorus 5.4 mg/dl (2.5-4.9); Total Protein 7.2 gm/dl (6.4-8.2); Troponin I 0.901 ng/ml (0-0.045)
[2018-10-18 10:59] LABS: ALC (manual) 0.49 K/uL (1.2-3.4); Lymphocytes # (manual) 0.49 K/uL (1.2-3.4); Lymphocytes % (manual) 4.3 %; Metamyelocytes % (manual) 6.1 %; Monocytes % (manual) 6.1 %; Neutrophils % (manual) 83.5 %; RBC Morphology Unremarkable
[2018-10-18] MEDS ORDERED: FUROSEMIDE 40 MG in SYRINGE 0 ML IV ONE (11:07)
[2018-10-18] MEDS ORDERED: FUROSEMIDE 40 MG/4 ML VIAL IV ONE (11:27)
[2018-10-18] MEDS ORDERED: OPTIRAY 320 125ml IV PRN (11:48)
--- NOTE | 2018-10-18 12:10 | CT Scan Report ---
CT abd pelvis IV con only CLINICAL HISTORY: Generalized abdominal pain and lower extremity edema. COMPARISON STUDY: None. TECHNIQUE: The patient was scanned in a dynamic helical fashion during intravenous administration of 120 cc of Optiray 320. A dose lowering technique was utilized adhering to the principles of ALARA. CT DOSE: 2520.54 mGy.cm FINDINGS: Lower chest: There is a small right pleural effusion. The heart is enlarged. There are coronary arter y calcifications. There are dependent atelectatic changes. Liver: There is hepatic steatosis. No focal hepatic masses are visualized. There is perihepatic ascit es. Gallbladder: Unremarkable. Spleen: Normal in size and attenuation. Pancreas: Unremarkable. Adrenal glands: Unremarkable. Kidneys: There is symmetric renal cortical enhancement. The kidneys are normal in size without hydron ephrosis. Bowel: There are no transition zones to indicate bowel obstruction. There is a moderate amount of col onic stool. There is colonic diverticulosis. No acute peridiverticular inflammatory changes are visua lized. Peritoneum: There is a [id number] volume of ascites. There is ascitic fluid within a right ing uinal hernia sac. No free air is visualized. Vasculature: Atheromatous changes are present within the aorta iliac vessels. There is no aneurysm. T here are common femoral vein filling defects versus flow related artifact. Leg ultrasonography is rec ommended in follow-up. Adenopathy: There are borderline enlarged common femoral lymph nodes measuring up to 1 cm in short ax is. Pelvic viscera: There is an indwelling Oro catheter present. Skeletal structures: No destructive osseous lesions are seen. There is generalized body wall edema. The study is moderately limited due to technical standpoint due to motion artifact. IMPRESSION: 1. Moderately degraded study secondary to motion artifact 2. Small right pleural effusion 3. Hepatic steatosis 4. Mild to moderate ascites 5. Generalized body wall edema 6. Ascitic fluid within a small right inguinal hernia 7. Borderline enlarged common femoral lymph nodes 8. Common femoral vein filling defects versus flow related artifact. Venous leg ultrasonography is re commended in follow-up 9. No evidence of bowel obstruction. No evidence of free air Electronically signed by: Dinh Farooq M.D. 10/18/2018 12:09 PM
--- NOTE | 2018-10-18 12:12 | History & Physical Report ---
Date of Service October 18, 2018 Assessment & Plan (1) Septic shock: Infectious and cardiogenic etiologies -SBP 90s, AMS, WBC of 11.4, lactic acid of 10.3, procal of 8 -In the setting of untreated BLE wounds x 3 months -No evidence of infection in chest or abdomen, blood and wound cultures pending -ED physician discussed with rotary dryer operator, Dr. Casey, who suggested diuresis in setting of apparent volume overload, so IV fluids not given initially -Started empirically on Vanc, Zosyn -Pressor support in ICU (2) Metabolic acidosis: pH of 7.12 on initial VBG in setting of lactic acidosis with HCO3 of 10 -Intubated due to obtunded mental status change -Received a total of 6 AMPs of bicarb followed with bicarb drip -Repeat pH of 6.9. Continue to closely monitor (3) PEA (Pulseless electrical activity): Became bradycardic and then developed PEA during intubation process and then arterial line placement in ED. Code Blue was called twice -CPR and epi given during code blue with ROSC achieved both times -Initial troponin 0.9, now 1.21 following arrest. Continue to trend -Now on pressor support, management per ICU (4) Acute respiratory failure: (5) Acute decompensated heart failure: SOB and hypoxic initially, placed on bipap with initial improvement but later intubated by rotary dryer operator once evaluated in ED due to mental status change -Chest CTA and CT abd/pelvis with evidence of with evidence for upper abdominal ascites/body wall anasarca, Moderate prominence of pulmonary vasculature as well as parenchymal markings consistent with a component of congestive failure/pulmonary edema -BNP >35,000. Given 40mg IV Lasix in ED. Strict I&Os, daily weights -Bedside echo with severely reduced LV function with EF: 25-30%. RV systolic function normal -No known history of CHF -Diuresis management per rotary dryer operator, currently requiring pressor support (6) Acute kidney injury: Creat elevated at 1.64. Baseline unknown -Continue monitoring (7) HTN (hypertension): Holding home medications. Currently requiring pressor support in ED Code status: FULL code per discussion with family at bedside PCP: Ana ROSAS Dispo: Admitted to ICU. Discharge planning ordered. Patient seen in collaboration with Dr. Dickson. Please see addendum. History of Present Illness Chief Complaint: SOB, bilateral lower extremity wounds Primary Care Provider: Ana Culver This is a 62-year-old male with a PMH of HTN, prediabetes and chronic back pain who presents with shortness of breath for the past few days. History primarily obtained from at bedside due to patient wearing BiPAP. Patient began to mention that he was short of breath the past few days. Unable to lay flat last evening. Was fine prior to that and able to play with grandchildren at the end of last week. Has also had bilateral lower extremity wounds and swelling for the past few months but was not evaluated by primary care provider. Wounds have been painful and itchy but patient able to ambulate without assistive devices. Family denies any altered mental status or confusion prior to arrival. was able to convince patient to come in for evaluation in ED today. No history of heart disease, congestive heart failure or blood clots in legs or lungs. No history of tobacco, alcohol or drug use. Initially hypoxic with dusky appearance of extremities. Started on BiPAP with improved oxygen saturation in mid 90s. Patient somewhat agitated with BiPAP mask but able to open eyes spontaneously. Unable to obtain ROS due to patient's agitated state. Chest CTA study limited due to respiratory and somatic motion. No evidence for a major pulmonary embolus based on the study as discussed above. Small right pleural effusion with evidence for upper abdominal ascites/body wall anasarca. Moderate prominence of pulmonary vasculature as well as parenchymal markings consistent with a component of congestive failure/pulmonary edema. CT abd/pelvis without evidence of bowel obstruction or free air. Common femoral vein filling defects versus flow related artifact, ascitic fluid within a small R inguinal hernia. Lactic acid significantly elevated at 10.3. Mild leukocytosis of 11.47, VBG pH with acidosis at 7.12, anion gap of 18, BNP >35,00 0. Patient was given IV Lasix 40mg and 1mg Ativan in ED prior to my evaluation. Called Dr. Casey in ICU, who agreed to evaluate patient and manage in unit. Was started on empiric vancomycin and Zosyn in setting of sepsis. Also recommended additional imaging of bilateral lower legs. Allergies Allergy/AdvReac Type Severity Reaction Status Date / Time No Known Allergies Allergy Unverified 10/18/18 10:31 Home Medications Home Medications Medication Instructions Recorded Confirmed Type aspirin 81 mg PO DAILY 10/18/18 10/18/18 History atenolol 50 mg PO DAILY 10/18/18 10/18/18 History dimenhydrinate [Dramamine] 50 mg PO Q8H PRN 10/18/18 10/18/18 History hydrocodone-acetaminophen 1 tab PO Q6H PRN 10/18/18 10/18/18 History lisinopril 20 mg PO DAILY 10/18/18 10/18/18 History naproxen 250 mg PO BID PRN 10/18/18 10/18/18 History Past Med/Surg History Medical History Chronic back pain (Chronic) Pre-diabetes (Chronic) HTN (hypertension) (Chronic) Surgical History S/P tonsillectomy (Chronic) Family History Other Diabetes Heart disease Social History Preferred Language: Moldovan Communication Ability: Unable J2Ee Developer Required: No Beliefs That Will Affect Care: None Current Living Situation: Spouse Feels Safe at Home: Yes Smoking Status: Never smoker Hx Alcohol Use: No Hx Substance Use: No Review of Systems Review of Systems: Unobtainable due to patient wearing bipap. Physical Exam Physical Exam: General Appearance: WD/WN, agitated wearing bipap mask, opening eyes, alert, moving all extremities spontaneously Head: normocephalic, atraumatic Eyes: normal inspection, PERRL, EOMI ENT: hearing grossly normal, wearing bipap mask Neck: supple, no JVD, no adenopathy Respiratory/Chest: diminished lung sounds bilaterally. No wheezes, rales or rhonchi appreciated. Saturating at 90% on bipap Cardiovascular: regular rate, rhythm, no murmur, normal peripheral pulses Abdomen/GI: normal bowel sounds, soft, mild distention, non-tender to palpation Extremities/Musculoskelatal: no calf tenderness, 2+ pitting edema of BLE with multiple small wounds with excoriation Neurologic/Psych: lethargic but opening eyes spontaneously, moving extremities spontaneously Skin: normal color, warm/dry, hands and feet cool to touch, dusky appearance of extremities distal to ankles Results & Data Vital Signs (Past 12 Hours) Vital Signs Temp Pulse Pulse Resp BP BP Pulse Ox 10/18/18 12:09 72 28 H 118/89 10/18/18 11:31 65 20 98/68 L 90 10/18/18 11:26 63 21 94 10/18/18 10:45 64 22 10/18/18 10:32 67 27 H 110/85 10/18/18 10:30 67 21 90 10/18/18 10:22 67 25 H 101/77 98 10/18/18 10:15 69 21 98 10/18/18 10:12 100 10/18/18 10:11 100 10/18/18 10:00 70 26 H 10/18/18 09:53 70 26 H 95 10/18/18 09:46 74 24 128/97 95 10/18/18 09:45 76 24 88 L 10/18/18 09:33 84 28 H 98 10/18/18 09:29 80 29 H 155/95 H 93 10/18/18 09:25 37 C 76 18 155/95 H 98 Laboratory Results Short CBC 10/18/18 10/18/18 10/18/18 Range/Units 10:08 10:08 10:08 WBC 11.47 H (4.8-10.8) K/uL RBC 6.03 (4.7-6.1) M/uL Hgb 14.6 (14.0-18.0) g/dL POC Hgb (14.0-18.0) g/dl Hct 47.3 (42-52) % POC Hct (42-52) % MCV 78.4 L (80-100) fL MCH 24.2 L (25-34) pg MCHC 30.9 L (32-36) g/dL RDW Std Deviation 50.1 H (36.4-46.3) fL RDW Coeff of Lauro 17.8 H (11.5-14.5) % Plt Count 195 (130-400) K/uL MPV 10.5 H (7.4-10.4) fL Neutrophils % (Manual) 83.5 % Lymphocytes % (Manual) 4.3 % Monocytes % (Manual) 6.1 % Metamyelocytes % (Man) 6.1 % Neutrophils # (Manual) 9.58 H (1.4-6.5) K/uL Total Absolute Neuts 9.58 H (1.4-6.5) K/uL Lymphocytes # (Manual) 0.49 L (1.2-3.4) K/uL Total Abs Lymphocytes 0.49 L (1.2-3.4) K/uL Monocytes # (Manual) 0.70 H (0.11-0.59) K/uL Metamyelocytes # (Man) 0.70 H (0-0) K/uL RBC Morphology Unremarkable ESR (0-14) mm/hr PT 18.8 H (9.0-12.0) Seconds INR 1.9 H (0.9-1.1) APTT 31.9 H (21.0-31.0) Seconds PTT Ratio 1.2 POC pH (7.35-7.45) POC pCO2 (35-46) mmHg POC pO2 (80-95) mmHg POC HCO3 (19-24) asia/L POC Total CO2 (24-31) mEq/l POC Base Excess (-9-1.8) asia/L VBG pH (7.36-7.41) VBG pCO2 (38-50) mmHg VBG pO2 mmHg VBG HCO3 mmol/L VBG O2 Saturation % VBG Base Excess mEq/L Barometric Pressure mm/Hg POC Sodium (135-144) mEq/L Sodium (136-145) mmol/L POC Potassium (3.3-5.0) mEq/L Potassium (3.5-5.1) mmol/L Chloride (98-107) mmol/L Carbon Dioxide (21-32) mmol/L Anion Gap (3-11) BUN (7-18) mg/dl Creatinine (0.6-1.4) mg/dl Est Cr Clr Drug Dosing ml/min Est GFR ( Amer) Est GFR (Non-Af Amer) BUN/Creatinine Ratio (10-20) Glucose (70-99) mg/dl Lactate 10.3 H* (0.4-2.0) mmol/L Calcium (8.5-10.1) mg/dl Phosphorus (2.5-4.9) mg/dl Magnesium (1.8-2.4) mg/dl Total Bilirubin (0.2-1) mg/dl Direct Bilirubin AST (15-37) U/L ALT (12-78) U/L Alkaline Phosphatase (45-117) U/L Total Creatine Kinase (39-308) U/L CK-MB (CK-2) (0.5-3.6) ng/ml CK/CKMB % Calc (0-3.0) Troponin I (0-0.045) ng/ml C-Reactive Protein (0-0.29) mg/dl NT-Pro-B Natriuret Pep (0-900) pg/ml Total Protein (6.4-8.2) gm/dl Albumin (3.4-5.0) gm/dl Globulin (2.5-4.0) gm/dl Albumin/Globulin Ratio (0.9-2) Procalcitonin (0-0.5) ng/ml Specimen Hemolysis Urine Color Urine Appearance (Clear) Urine pH (4.5-7.5) Ur Specific [place] (1.000-1.030) Urine Protein (Negative) Urine Glucose (UA) (Negative) Urine Ketones (Negative) Urine Blood (Negative) Urine Nitrite (Negative) Urine Bilirubin (Negative) Urine Urobilinogen (Negative) Ur Leukocyte Esterase (Negative) Urine WBC (Auto) (0-5) /hpf Urine RBC (Auto) (0-4) /hpf U Hyaline Cast (Auto) (0-5) /lpf U Epithel Cells (Auto) (0-5) /lpf Urine Bacteria (Auto) (Negative) 10/18/18 10/18/18 10/18/18 Range/Units 10:08 10:08 10:08 WBC (4.8-10.8) K/uL RBC (4.7-6.1) M/uL Hgb (14.0-18.0) g/dL POC Hgb (14.0-18.0) g/dl Hct (42-52) % POC Hct (42-52) % MCV (80-100) fL MCH (25-34) pg MCHC (32-36) g/dL RDW Std Deviation (36.4-46.3) fL RDW Coeff of Lauro (11.5-14.5) % Plt Count (130-400) K/uL MPV (7.4-10.4) fL Neutrophils % (Manual) % Lymphocytes % (Manual) % Monocytes % (Manual) % Metamyelocytes % (Man) % Neutrophils # (Manual) (1.4-6.5) K/uL Total Absolute Neuts (1.4-6.5) K/uL Lymphocytes # (Manual) (1.2-3.4) K/uL Total Abs Lymphocytes (1.2-3.4) K/uL Monocytes # (Manual) (0.11-0.59) K/uL Metamyelocytes # (Man) (0-0) K/uL RBC Morphology ESR 16 H (0-14) mm/hr PT (9.0-12.0) Seconds INR (0.9-1.1) APTT (21.0-31.0) Seconds PTT Ratio POC pH (7.35-7.45) POC pCO2 (35-46) mmHg POC pO2 (80-95) mmHg POC HCO3 (19-24) asia/L POC Total CO2 (24-31) mEq/l POC Base Excess (-9-1.8) asia/L VBG pH 7.12 L (7.36-7.41) VBG pCO2 47 (38-50) mmHg VBG pO2 31 mmHg VBG HCO3 15 mmol/L VBG O2 Saturation < 60.0 % VBG Base Excess -14.2 mEq/L Barometric Pressure 732.5 mm/Hg POC Sodium (135-144) mEq/L Sodium 137 (136-145) mmol/L POC Potassium (3.3-5.0) mEq/L Potassium 4.2 (3.5-5.1) mmol/L Chloride 104 (98-107) mmol/L Carbon Dioxide 16 L (21-32) mmol/L Anion Gap 18.0 H (3-11) BUN 25 H (7-18) mg/dl Creatinine 1.64 H (0.6-1.4) mg/dl Est Cr Clr Drug Dosing 53.3 ml/min Est GFR ( Amer) 50.5 Est GFR (Non-Af Amer) 43.5 BUN/Creatinine Ratio 15.1 (10-20) Glucose 134 H (70-99) mg/dl Lactate (0.4-2.0) mmol/L Calcium 8.7 (8.5-10.1) mg/dl Phosphorus 5.4 H (2.5-4.9) mg/dl Magnesium 2.0 (1.8-2.4) mg/dl Total Bilirubin 2.2 H (0.2-1) mg/dl Direct Bilirubin AST 28 (15-37) U/L ALT 21 (12-78) U/L Alkaline Phosphatase 64 (45-117) U/L Total Creatine Kinase 121 (39-308) U/L CK-MB (CK-2) 5.5 H (0.5-3.6) ng/ml CK/CKMB % Calc 4.5 H (0-3.0) Troponin I 0.901 H* (0-0.045) ng/ml C-Reactive Protein 6.78 H (0-0.29) mg/dl NT-Pro-B Natriuret Pep > 89811 H (0-900) pg/ml Total Protein 7.2 (6.4-8.2) gm/dl Albumin 3.5 (3.4-5.0) gm/dl Globulin 3.7 (2.5-4.0) gm/dl Albumin/Globulin Ratio 0.9 (0.9-2) Procalcitonin (0-0.5) ng/ml Specimen Hemolysis Urine Color Urine Appearance (Clear) Urine pH (4.5-7.5) Ur Specific [place] (1.000-1.030) Urine Protein (Negative) Urine Glucose (UA) (Negative) Urine Ketones (Negative) Urine Blood (Negative) Urine Nitrite (Negative) Urine Bilirubin (Negative) Urine Urobilinogen (Negative) Ur Leukocyte Esterase (Negative) Urine WBC (Auto) (0-5) /hpf Urine RBC (Auto) (0-4) /hpf U Hyaline Cast (Auto) (0-5) /lpf U Epithel Cells (Auto) (0-5) /lpf Urine Bacteria (Auto) (Negative) 10/18/18 10/18/18 10/18/18 Range/Units 10:08 11:25 13:17 WBC (4.8-10.8) K/uL RBC (4.7-6.1) M/uL Hgb (14.0-18.0) g/dL POC Hgb 14.6 (14.0-18.0) g/dl Hct (42-52) % POC Hct 43 (42-52) % MCV (80-100) fL MCH (25-34) pg MCHC (32-36) g/dL RDW Std Deviation (36.4-46.3) fL RDW Coeff of Lauro (11.5-14.5) % Plt Count (130-400) K/uL MPV (7.4-10.4) fL Neutrophils % (Manual) % Lymphocytes % (Manual) % Monocytes % (Manual) % Metamyelocytes % (Man) % Neutrophils # (Manual) (1.4-6.5) K/uL Total Absolute Neuts (1.4-6.5) K/uL Lymphocytes # (Manual) (1.2-3.4) K/uL Total Abs Lymphocytes (1.2-3.4) K/uL Monocytes # (Manual) (0.11-0.59) K/uL Metamyelocytes # (Man) (0-0) K/uL RBC Morphology ESR (0-14) mm/hr PT (9.0-12.0) Seconds INR (0.9-1.1) APTT (21.0-31.0) Seconds PTT Ratio POC pH 6.93 L* (7.35-7.45) POC pCO2 45 (35-46) mmHg POC pO2 155 H (80-95) mmHg POC HCO3 10 L (19-24) asia/L POC Total CO2 11 L (24-31) mEq/l POC Base Excess -23.0 L (-9-1.8) asia/L VBG pH (7.36-7.41) VBG pCO2 (38-50) mmHg VBG pO2 mmHg VBG HCO3 mmol/L VBG O2 Saturation % VBG Base Excess mEq/L Barometric Pressure mm/Hg POC Sodium 137 (135-144) mEq/L Sodium (136-145) mmol/L POC Potassium 3.5 (3.3-5.0) mEq/L Potassium (3.5-5.1) mmol/L Chloride (98-107) mmol/L Carbon Dioxide (21-32) mmol/L Anion Gap (3-11) BUN (7-18) mg/dl Creatinine (0.6-1.4) mg/dl Est Cr Clr Drug Dosing ml/min Est GFR ( Amer) Est GFR (Non-Af Amer) BUN/Creatinine Ratio (10-20) Glucose (70-99) mg/dl Lactate (0.4-2.0) mmol/L Calcium (8.5-10.1) mg/dl Phosphorus (2.5-4.9) mg/dl Magnesium (1.8-2.4) mg/dl Total Bilirubin (0.2-1) mg/dl Direct Bilirubin AST (15-37) U/L ALT (12-78) U/L Alkaline Phosphatase (45-117) U/L Total Creatine Kinase (39-308) U/L CK-MB (CK-2) (0.5-3.6) ng/ml CK/CKMB % Calc (0-3.0) Troponin I (0-0.045) ng/ml C-Reactive Protein (0-0.29) mg/dl NT-Pro-B Natriuret Pep (0-900) pg/ml Total Protein (6.4-8.2) gm/dl Albumin (3.4-5.0) gm/dl Globulin (2.5-4.0) gm/dl Albumin/Globulin Ratio (0.9-2) Procalcitonin 8.72 H (0-0.5) ng/ml Specimen Hemolysis Urine Color [place] Urine Appearance Clear (Clear) Urine pH 5.0 (4.5-7.5) Ur Specific [place] 1.026 (1.000-1.030) Urine Protein 1+ H (Negative) Urine Glucose (UA) Trace H (Negative) Urine Ketones Negative (Negative) Urine Blood Negative (Negative) Urine Nitrite Positive A (Negative) Urine Bilirubin Negative (Negative) Urine Urobilinogen Negative (Negative) Ur Leukocyte Esterase Negative (Negative) Urine WBC (Auto) 1-5 (0-5) /hpf Urine RBC (Auto) 0-4 (0-4) /hpf U Hyaline Cast (Auto) 5-10 H (0-5) /lpf U Epithel Cells (Auto) 20-30 H (0-5) /lpf Urine Bacteria (Auto) Negative (Negative) 10/18/18 10/18/18 10/18/18 Range/Units 14:15 14:15 14:15 WBC (4.8-10.8) K/uL RBC (4.7-6.1) M/uL Hgb (14.0-18.0) g/dL POC Hgb (14.0-18.0) g/dl Hct (42-52) % POC Hct (42-52) % MCV (80-100) fL MCH (25-34) pg MCHC (32-36) g/dL RDW Std Deviation (36.4-46.3) fL RDW Coeff of Lauro (11.5-14.5) % Plt Count (130-400) K/uL MPV (7.4-10.4) fL Neutrophils % (Manual) % Lymphocytes % (Manual) % Monocytes % (Manual) % Metamyelocytes % (Man) % Neutrophils # (Manual) (1.4-6.5) K/uL Total Absolute Neuts (1.4-6.5) K/uL Lymphocytes # (Manual) (1.2-3.4) K/uL Total Abs Lymphocytes (1.2-3.4) K/uL Monocytes # (Manual) (0.11-0.59) K/uL Metamyelocytes # (Man) (0-0) K/uL RBC Morphology ESR (0-14) mm/hr PT (9.0-12.0) Seconds INR (0.9-1.1) APTT (21.0-31.0) Seconds PTT Ratio POC pH (7.35-7.45) POC pCO2 (35-46) mmHg POC pO2 (80-95) mmHg POC HCO3 (19-24) asia/L POC Total CO2 (24-31) mEq/l POC Base Excess (-9-1.8) asia/L VBG pH (7.36-7.41) VBG pCO2 (38-50) mmHg VBG pO2 mmHg VBG HCO3 mmol/L VBG O2 Saturation % VBG Base Excess mEq/L Barometric Pressure mm/Hg POC Sodium (135-144) mEq/L Sodium 142 (136-145) mmol/L POC Potassium (3.3-5.0) mEq/L Potassium 3.8 (3.5-5.1) mmol/L Chloride 107 (98-107) mmol/L Carbon Dioxide 10 L (21-32) mmol/L Anion Gap 25.0 H (3-11) BUN 27 H (7-18) mg/dl Creatinine 1.76 H (0.6-1.4) mg/dl Est Cr Clr Drug Dosing 49.7 ml/min Est GFR ( Amer) 46.3 Est GFR (Non-Af Amer) 40.0 BUN/Creatinine Ratio 15.2 (10-20) Glucose 69 L (70-99) mg/dl Lactate 16.2 H* (0.4-2.0) mmol/L Calcium 8.8 (8.5-10.1) mg/dl Phosphorus (2.5-4.9) mg/dl Magnesium (1.8-2.4) mg/dl Total Bilirubin 2.5 H (0.2-1) mg/dl Direct Bilirubin TNP AST 84 H (15-37) U/L ALT 41 (12-78) U/L Alkaline Phosphatase 63 (45-117) U/L Total Creatine Kinase (39-308) U/L CK-MB (CK-2) (0.5-3.6) ng/ml CK/CKMB % Calc (0-3.0) Troponin I Cancelled 1.190 H* (0-0.045) ng/ml C-Reactive Protein (0-0.29) mg/dl NT-Pro-B Natriuret Pep (0-900) pg/ml Total Protein 5.1 L D (6.4-8.2) gm/dl Albumin 2.4 L (3.4-5.0) gm/dl Globulin 2.7 (2.5-4.0) gm/dl Albumin/Globulin Ratio 0.9 (0.9-2) Procalcitonin (0-0.5) ng/ml Specimen Hemolysis Urine Color Urine Appearance (Clear) Urine pH (4.5-7.5) Ur Specific [place] (1.000-1.030) Urine Protein (Negative) Urine Glucose (UA) (Negative) Urine Ketones (Negative) Urine Blood (Negative) Urine Nitrite (Negative) Urine Bilirubin (Negative) Urine Urobilinogen (Negative) Ur Leukocyte Esterase (Negative) Urine WBC (Auto) (0-5) /hpf Urine RBC (Auto) (0-4) /hpf U Hyaline Cast (Auto) (0-5) /lpf U Epithel Cells (Auto) (0-5) /lpf Urine Bacteria (Auto) (Negative) BMP 10/18/18 10/18/18 10:08 14:15 Sodium 137 142 Potassium 4.2 3.8 Chloride 104 107 Carbon Dioxide 16 L 10 L BUN 25 H 27 H Creatinine 1.64 H 1.76 H Glucose 134 H 69 L Calcium 8.7 8.8 Cardiac Enzymes 10/18/18 10/18/18 10/18/18 Range/Units 10:08 14:15 14:15 Total Creatine Kinase 121 (39-308) U/L CK-MB (CK-2) 5.5 H (0.5-3.6) ng/ml Troponin I 0.901 H* Cancelled 1.190 H* (0-0.045) ng/ml Liver Function 10/18/18 10/18/18 Range/Units 10:08 14:15 Total Bilirubin 2.2 H 2.5 H (0.2-1) mg/dl Direct Bilirubin TNP AST 28 84 H (15-37) U/L ALT 21 41 (12-78) U/L Alkaline Phosphatase 64 63 (45-117) U/L Albumin 3.5 2.4 L (3.4-5.0) gm/dl Urine 10/18/18 Range/Units 11:25 Urine Color [place] Urine Appearance Clear (Clear) Urine pH 5.0 (4.5-7.5) Ur Specific [place] 1.026 (1.000-1.030) Urine Protein 1+ H (Negative) Urine Glucose (UA) Trace H (Negative) Diagnostic Findings CXR: IMPRESSION: Mild pulmonary edema. Repeat CXR: IMPRESSION: 1. Cardiomegaly and slight improvement in the pulmonary vascular congestion 2. Interval placement of endotracheal tube 19 mm above the bryson 3. Interval placement of a left subclavian central venous catheter. No evidence of pneumothorax in the supine study 4. Interval placement of nasogastric tube which is positioned within the stomach Chest CTA: IMPRESSION: 1. Limited study due to severe respiratory and somatic motion. 2. No evidence for a major pulmonary embolus based on the study as discussed above. 3. Small right pleural effusion with evidence for upper abdominal ascites/body wall anasarca. 4. Moderate prominence of pulmonary vasculature as well as parenchymal markings consistent with a component of congestive failure/pulmonary edema. CT abd/pelvis: IMPRESSION: 1. Moderately degraded study secondary to motion artifact 2. Small right pleural effusion 3. Hepatic steatosis 4. Mild to moderate ascites 5. Generalized body wall edema 6. Ascitic fluid within a small right inguinal hernia 7. Borderline enlarged common femoral lymph nodes 8. Common femoral vein filling defects versus flow related artifact. Venous leg ultrasonography is recommended in follow-up 9. No evidence of bowel obstruction. No evidence of free air Bilateral Tibia/Fibula XR: IMPRESSION: Diffuse soft tissue swelling/edema within the bilateral lower extremities. No underlying bony abnormality. Code Status & VTE Plan VTE Prophylaxis Plan VTE Prophylaxis will be ordered: Yes Supervising Physician Co-Signing Physician Notes ATTENDING ADDENDUM: Patient seen and examined, care coordinated with Cheryle Partida PA-C This is a 62-year-old male who has not been following up with any family physician for years, history of hypertension diabetes Has been dealing with bilateral lower extremity multiple wounds, for past few months Had serous to yellow purulent drainage from bilateral lower extremity wounds Family mentioned did not had any fever or chills has been asking constantly patient to come to ER for evaluation of lower extremity ulcers and wounds Patient has been refusing to seek medical help at the clinic or come to emergency room She was not able to sleep last night for severe bilateral lower extremity pain, Morning and developed acute shortness of breath, was agreeable to come to hospital In the ER patient presented with hypoxia severe metabolic acidosis with lactic elevated to 10, hypotension Initially was on BiPAP-later required intubation as clinical condition continued to decline Was started on pressors- Patient developed PEA cardiac arrest in ER while ICU team was attempting to put a central line Was revived after CPR, multiple rounds of epinephrine, bicarb Pulse was regained briefly, and developed PEA cardiac arrest again After CPR, pressors, patient's pulse was regained, ICU patient's continues to deteriorate in spite of aggressive management with a 4 pressors/broad-spectrum antibiotic, ventilatory support noted to have a severe septic shock, cardiogenic shock with multiorgan failure Physical exam: General: Patient is obtunded, very cyanotic, Was seen on BiPAP later intubated HEENT: Pupil dilated, nonreactive ET tube present Chest: Rales bibasilarly, scattered with Abdomen: Distended, positive ascites, absent bowel sounds Extremities: Multiple shallow ulcers/wounds on bilateral lower extremity extended from upper thigh to foot, with purulent base Remedies very cyanotic, purplish to blue, cold and clammy, peripheral pulse coul d not be obtained Skin: Cyanotic, dusky, skin mottling noted on chest and torso Neuro; patient is unresponsive ASSESSMENT AND PLAN Severe sepsis with septic shock: Possible source of bilateral lower extremity infected wound Given IV fluids continue broad-spectrum antibiotic, pressor supports to keep vital organ perfusion Order for wound culture, blood culture urine culture ICU admission Very poor prognosis Severe metabolic acidosis Secondary to above Lactic acid 10, worsening to 16 With pH dropping to 6.9 Continue IV fluid resuscitation to maintain organ perfusion antibiotics Started on bicarb drip Acute renal failure/oliguric Secondary to organ hypoperfusion, septic shock/cardiogenic shock IV fluids continued Minimum urine noted on Oro catheter Poor candidate for dialysis PEA cardiac arrest: Secondary to severe sepsis /cardiogenic shock /severe metabolic acidosis Patient became bradycardic leading to PEA cardiac arrest x2 in the ER Received rounds of epinephrine, bicarb at present on bicarb drip EF shows severe cardiomyopathy with reduced EF of 30% Extremely poor prognosis CODE STATUS: Full code: Discussed with and daughter present at bedside on admission Disposition: Patient is admitted to ICU Prognosis remains extremely poor/grim Please refer to further documentation by Cheryle Partida PA-C for discussion of other chronic issues Franca Dickson MD
--- NOTE | 2018-10-18 12:12 | CT Scan Report ---
CT angio chest PE protocol CT DOSE: HISTORY: Chest pain. Dyspnea. PE TECHNIQUE: Multiaxial CT images of the chest were performed following the intravenous administration of contrast to evaluate the pulmonary arteries. Maximal intensity projection images were also obtaine d. A dose lowering technique was utilized adhering to the principles of ALARA. COMPARISON STUDY: None. FINDINGS: Near nondiagnostic study. Severe patient motion is present throughout. Images of the lower chest for the CT abdomen and pelvis show improved definition. No evidence for filling defect within the mid to lower pulmonary arterial vasculature. No evidence for major central embolus. Images of the upper chest are of limited/non-diagnostic utility. Note is made of upper abdominal asci collins as well as body wall anasarca IMPRESSION: 1. Limited study due to severe respiratory and somatic motion. 2. No evidence for a major pulmonary embolus based on the study as discussed above. 3. Small right pleural effusion with evidence for upper abdominal ascites/body wall anasarca. 4. Moderate prominence of pulmonary vasculature as well as parenchymal markings consistent with a com ponent of congestive failure/pulmonary edema. The above report was generated using voice recognition software. It may contain grammatical, syntax or spelling errors. Electronically signed by: Jayson Gupta M.D. 10/18/2018 12:11 PM
[2018-10-18 12:15] LABS: Appearance Urine Clear (Clear); Bacteria Urine Automated Negative (Negative); Blood Urine Negative (Negative); Color Urine Orange; Epithelial Cell Urine Auto 20-30 /lpf (0-5); Glucose Urine UA Trace (Negative); Ketones Urine Negative (Negative); Leukocyte Esterase Urine Negative (Negative); Nitrite Urine Positive (Negative); Protein Urine 1+ (Negative); RBC Urine Automated 0-4 /hpf (0-4); Specific Gravity Urine 1.026 (1.000-1.030); Urobilinogen Urine Negative (Negative)
[2018-10-18] MEDS ORDERED: SODIUM CHLORIDE 0.9% 1000ML 1,000 ML IV SCH (12:15)
[2018-10-18] MEDS ORDERED: ICU PROTOCOL FOR HYPERGLYCEMIA PRN ×2 (12:17→13:58)
[2018-10-18] MEDS ORDERED: LEVALBUTEROL HCL 1.25 MG/3 ML NEB INH PRN (12:17)
[2018-10-18] MEDS ORDERED: ALBUT/IPRATROP 3MG/0.5MG NEB 3 ML VIAL INH PRN (12:17)
[2018-10-18] MEDS ORDERED: RAPID SEQUENCE INDUCTION BAG ONE (12:19)
[2018-10-18] MEDS ORDERED: PROPOFOL IV EMULSION 10 MG/ML 20 ML VIAL IV ONE (12:20)
[2018-10-18 12:21] LABS: Bilirubin Urine Negative (Negative); Ictotest Urine Negative (Negative)
[2018-10-18] MEDS ORDERED: PROPOFOL IV EMULSION 10 MG/ML 100 ML VIAL IV ONE (12:26)
[2018-10-18] MEDS ORDERED: VANCOMYCIN HCL 2,500 MG in SODIUM CHLORIDE 0.9% 500 ML IV ONE (12:30)
[2018-10-18] MEDS ORDERED: PIPERACILLIN/TAZOBACTAM 4.5 GM in DEXTROSE 5% 100 ML IV ONE (12:30)
[2018-10-18] MEDS ORDERED: NOREPINEPHRINE BIT INJ 8 MG in DEXTROSE 5% 500 ML IV SCH (13:09)
[2018-10-18] MEDS ORDERED: EPINEPHrine 2 MG in DEXTROSE 5% 250 ML IV STA (13:26)
[2018-10-18 13:33] LABS: iSTAT Arterial Blood Gas HCO3 10 meg/L (19-24); iSTAT Arterial Blood Gas pCO2 45 mmHg (35-46); iSTAT Arterial Blood Gas pH 6.93 (7.35-7.45); iSTAT Carbon Dioxide 11 mEq/l (24-31); iSTAT Hematocrit 43 % (42-52); iSTAT Hemoglobin 14.6 g/dl (14.0-18.0); iSTAT Potassium 3.5 mEq/L (3.3-5.0); iSTAT Sodium 137 mEq/L (135-144)
--- NOTE | 2018-10-18 13:58 | XRay Report ---
XR chest 1V portable CLINICAL HISTORY: Respiratory failure COMPARISON STUDY: 10/18/2018 FINDINGS: There is an endotracheal tube 19 mm above the bryson. There is a left subclavian central ve nous catheter the tip of which terminates near the region of the atriocaval junction. No pneumothorax is visualized on the supine study. There is a nasogastric tube positioned within the stomach. The he art is enlarged. There is improving pulmonary vascular congestion. There is no lobar consolidation. IMPRESSION: 1. Cardiomegaly and slight improvement in the pulmonary vascular congestion 2. Interval placement of endotracheal tube 19 mm above the bryson 3. Interval placement of a left subclavian central venous catheter. No evidence of pneumothorax in th e supine study 4. Interval placement of nasogastric tube which is positioned within the stomach Electronically signed by: Dinh Farooq M.D. 10/18/2018 1:56 PM
[2018-10-18] MEDS ORDERED: PROPOFOL 1,000 MG/100 ML VIAL IV SCH (14:00)
--- NOTE | 2018-10-18 14:07 | Procedure Note ---
Procedure Note Date of Service October 18, 2018 CENTRAL LINE PROCEDURE NOTE: Procedure: Central Line Placement Provider: Nabil Casey MD Indication: Central Drug Administration, Poor Venous Access, Multiple Lab Draws Necessary, etc. Anesthesia: None Site: Left subclavian Procedure was emergent. Consent was unable to be obtained from the patient as he was obtunded. and daughter provided verbal consent at the bedside A time-out was completed verifying correct patient, procedure, site, positioning, and implants(s) or special equipment if applicable. Patients left subclavian area was cleansed and draped in the typical sterile fashion using Chloraprep. The left subclavian vein was cannulated on the first attempt. Good venous blood return was maintained prior to removal of syringe from introducer needle. Using Seldinger Technique, a guide wire was advanced through the introducer needle without resistance. The introducer needle was removed. A small incision was made in penetrating fashion at the guide wire insertion site utilizing an 11 blade scalpel. The dilator was advanced to the vessel without resistance. The dilator was exchanged for the triple lumen catheter which was advanced into the vessel without resistance. The guide wire was removed intact from the catheter without issue. Claves were placed on each catheter tip with confirmation of good blood flow from each lumen. Each port was easily flushed with sterile saline. The catheter was placed at 20 cm and sutured in place. BioPatch was applied to the catheter and a sterile Tegaderm dressing was applied over the catheter with careful attention to sterility. Patient tolerated procedure well. No immediate complications were met. Post procedure x-ray was completed, placement was appropriate and no pneumothorax was noted. Estimate blood loss, less than 5 cc Coding CPT Codes Tubes, Drains, and Vasc Access - Tubes, Drains, and Vasc Access: Place catheter in vein superior or inferior vena cava ([id number])
--- NOTE | 2018-10-18 14:09 | Procedure Note ---
Procedure Note Date of Service October 18, 2018 ARTERIAL LINE PROCEDURE NOTE: Procedure: Arterial Line Placement Provider: Nabil Casey MD Indication: Monitoring on Pressors Anesthesia: None Patient was unable to provide consent due to altered mental status and being on the ventilator. Family including and daughter did give verbal consent prior to procedure A time-out was completed verifying correct patient, procedure, site, positioning, and implant(s) or special equipment if applicable. Allens test was performed to ensure adequate perfusion. Patients right wrist was prepped and draped in the usual sterile fashion. Ultrasound guidance was used to aid needle placement. A 20g Arrow arterial line was introduced into the radial artery. Catheter was threaded, and the needle was removed with appropriate blood return. Good waveform was observed. The patient tolerated the procedure well. Images were not saved due to technical issues. Blood Loss: Minimal Complications: None Coding CPT Codes Tubes, Drains, and Vasc Access - Tubes, Drains, and Vasc Access: Insertion Catheter, Artery ([id number]) Tubes, Drains, and Vasc Access - Tubes, Drains, and Vasc Access: Ultrasound Guidance For Vascular ([id number])
--- NOTE | 2018-10-18 14:11 | Procedure Note ---
Procedure Note Date of Service October 18, 2018 CPR note: Patient was being assessed in the emergency room. He was obtunded and we elec cesar to proceed with intubation. After he was intubated during the prep for the central line, he lost pulses. This appeared to be PEA arrest. CPR was initiated immediately. After 2 minutes of CPR and epinephrine he had return of spontaneous circulation. The central line was then placed. The patient was then being prepped for an arterial line. Again during the preparation for the arterial line the patient developed bradycardia with loss of pulses. CPR was then again initiated. He had return of spontaneous circulation after 2 minutes of CPR and additional epinephrine. An epi drip was initiated. The arterial line was then placed. Please see separate notes for these procedures. The family was updated. Patient then transported to the intensive care unit and remains in critically ill condition. Coding CPT Codes Resuscitation - Resuscitation: Heart/lung resuscitation CPR ([id number])
--- NOTE | 2018-10-18 14:18 | Procedure Note ---
Procedure Note Date of Service October 18, 2018 Note INTUBATION PROCEDURE NOTE: Provider: RALPH Sen Attending: Dr. Nabil Casey A time-out was completed verifying correct patient, procedure, site, positioning. Patient was evaluated and required emergent intubation for respiratory failure/compromise with altered mental status. Sedative agent used: Etomidate 40 mg, propofol 5 mcg Paralysis agent used: None Emergent consent was implied given patients rapidly declining clinical status and need for airway protection. The patient was prepared in the appropriate fashion. Sedation was achieved utilizing etomidate 40 mGy and propofol 5 mcg, per Dr. Will Casey administration. The patient was allowed to remain on BiPAP prior to the procedure as he was obtaining adequate oxygenation. A 8.0 Beninese endotracheal tube was placed using a video-assisted laryngoscope on the first attempt and the tube was advanced to 24 cm at the lip. Stylette was removed and cath balloon was inflated. Appropriate endotracheal tube position was confirmed by direct visualization of vocal cord passage. Appropriate Colorimetric change was appreciated. Bilateral breath sounds were heard without air sounds in the abdomen. Dr. Nabil Casey was present for the entire procedure. Post Intubation Chest X-ray confirms placement without pneumothorax. Patient tolerated the procedure well. However the patient went into pulseless electrical activity rhythm and CODE BLUE was initiated shortly after the procedure was complete. See consultation note for details. Supervising Physician Co-Signing Physician Notes I was present for the entire procedure. See PHUONG note. Coding CPT Codes Resuscitation - Resuscitation: Endotracheal Intubation, emergency ([id number])
--- NOTE | 2018-10-18 14:28 | Critical Care Consultation ---
Date of Consultation October 18, 2018 Assessment & Plan (1) Metabolic acidosis: Reason Critically Ill: 62-year-old male presents to the ED with complaints of shortness of breath, found to be severely metabolic acidosis along with volume overload. Was intubated in the emergency department in cardiac arrested twice. Neuro - [facility] ICU: Unable to assess Sedation: Propofol drip Cardiac - Cardiac arrestpatient arrested into bradycardic PEA in ED twice and ROSC was achieved with CPR and epi pushes along with multiple bicarb and calcium chloride pushes -Patient intubated and A-line and central line in place -Currently on epinephrine gtt., vaso drip, dobutamine -Troponins 0.9 and 1.21 currently trending up after arrest, likely elevated from demand ischemia. Will continue to trend and consider consult to cardiology if it continues to elevate. -No ST elevation on EKG Cardiogenic shock-elevated BNP along with pulmonary edema on CT chest consistent with CHF -Echo revealed LV EF 25 to 30% -Dobutamine added to vasopressors -Given Lasix in ED, will hold as patient is currently requiring more vasopressor support Septic shock: -Patient has bilateral lower extremity cellulitis that is been ongoing for the past few months which he has not seeking treatment -Initial lactate elevated at 10 now trending to 16, will recheck at 2000 -Procalcitonin elevated to 8.6, trend with a.m. labs -Initially received Vanco and Zosyn, will continue -Was extremely acidotic and received a total of 6 AMPs of bicarb followed with bicarb drip -Wound culture and blood cultures pending -No evidence of bowel obstruction or free air on CT abdomen -No evidence of infectious pulmonary process per CT chest -Obtaining tib-fib x-rays, results pending HTN: Holding antihypertensives as patient is currently on vasopressor support Respiratory - Respiratory distress requiring intubation. ETT 8.0 at 24 at the lip. Placement confirmed on chest x-ray Current ventilator settings: AC VC 22/450/12/60 percent AB.16/35/561/12, will keep CO2 low side of normal to help compensation for metabolic acidosis GI - No evidence of bowel obstruction or free air on CT abdomen OG tube to low intermittent wall suction RENAL/LYTES - JAMEY/renal failureno baseline for creatinine but was elevated to 1.6 on admission, patient now anuric following cardiac arrest. -Continue bicarb drip -Strict I's and O's -Monitor with routine BMPs -Holding lisinopril -Avoid nephrotoxins -Consider consult to nephrology if no improvement - Indwelling Oro catheterstrict I's and O's ENDO - No history hypothyroidism History of prediabetes but not on medications Currently euglycemic, will follow ICU hyperglycemic protocol HEME - H&H stable, monitor routine CBCs ID - Vancomycin and Zosyn Lactate of 16, procalcitonin 8.7, wound culture and blood cultures pending Obtaining imaging for source LINES/IV ACCESS - Left subclavian CVC, right radial A-line, ETT 8.0, OG tube, peripheral IVs x2, Oro DVT PROPHYLAXIS - SCDs, subcu heparin CODE STATUS: Per discussion between Dr. Will Casey and family including and daughter's at bedside, family would like to make the patient full supportDNR with no shocks or compressions in the event the patient expires. We will continue to treat medically. I have personally spent 140 minutes of critical care time in the direct management of this patient. This is a life/limb threatening event. This includes time spent evaluating patient, direct bedside care, chart review, placing orders, interpretation of diagnostic studies, discussion with consultants, patient, and family members, as well as other required patient management activities. This time is exclusive of all separately billable procedures, and teaching time and separate from and in addition to any other critical care service time. Thank you for allowing us to participate in the care of this patient. Please refer to my attending physician's documentation for any further recommendations. (2) Chronic back pain: (3) HTN (hypertension): (4) Cardiogenic shock: (5) Pulmonary edema: (6) Respiratory distress: Supervising Physician Co-Signing Physician Notes Seen and examined. Actively involved in evaluating and treating the patient in the ER. 62 y/o M does not seek medical attention on a regular basis presenting with anasarca, lactic acidosis and hypoxemic and hypercapnic respiratory failure. Presented to the ED to evaluate the patient as there was some delay in obtaining an ICU bed. on initial assessment, the patient was obtunded and acidotic and decision made to proceed with intubation and CVC. see seperate procedure notes. After sedation, patient had PEA arrest - see code notes. iniatated on broad spectrum abx for possible LE cellulitis. Brought to ICU - echo with decreased systolic function. Had to add vasopressin and dobutamine for target SBP. Despite efforts, patient lactate climbing and now functionally anuric. Multiple extensive discussions with family who do not want additional CPR and state patient would not want renal replacement or additional heroic measures. Concern for ischemic bowel or possible necrotizing soft tissue infection but patient not candidate for any invasive procedures and initial imaging unrevealing. After discussion with family, they have elected to continue current care in hopes of improvement. NO additional CPR or heroic measures should he continue to deteriorate. History of Present Illness Attending Physician: Franca Dickson MD History of Present Illness Patient is a 62-year-old male with past medical history of hypertension and chronic back pain who presented to the emergency department with complaints of shortness of breath. He was placed on BiPAP in the [facility] emergency department and was found to have a severe metabolic acidosis with lactic acid of 10. The patient has had a bilateral lower extremity cellulitis that his states is been ongoing for a few months but he has not received treatment. CT chest was negative for PE, but revealed pulmonary congestion/edema. BNP was also severely elevated and patient was given Lasix. A wound culture of the lower extremity was obtained along with blood cultures which are now pending. [facility] team was consulted in which we saw the patient in the emergency department. Initial exam in the ED revealed that the patient would require emergent intubation as he was severely acidotic and unarousable. The initial intubation procedure went well, however shortly after the patient went into a bradycardic PEA rhythm. CODE BLUE was initiated and ROSC was achieved following CPR and administration of epinephrine x2. Central line and arterial line were emergently placed. The patient went into a bradycardic PEA rhythm again and CODE BLUE was again initiated with ROSC achieved through compressions along with administration of epinephrine, bicarb, calcium chloride pushes. Epinephrine and bicarb drips were started in the ED and patient was transferred to ICU. Update 1700: He is currently intubated and sedated with propofol. We have added vasopressin and dobutamine drips. He is continuing to require more vasopressor support to maintain BP. He is now an uric and lactate has continued to trend upward. Per discussion between Dr. Casey and family including and daughters, they agreed to continue medical management with CODE STATUS of DNR: No shocks no compressions in the event the patient were to have another cardiac event. Allergies Allergy/AdvReac Type Severity Reaction Status Date / Time No Known Allergies Allergy Unverified 10/18/18 10:31 Home Medications Home Medications Medication Instructions Recorded Confirmed Type aspirin 81 mg PO DAILY 10/18/18 10/18/18 History atenolol 50 mg PO DAILY 10/18/18 10/18/18 History dimenhydrinate [Dramamine] 50 mg PO Q8H PRN 10/18/18 10/18/18 History hydrocodone-acetaminophen 1 tab PO Q6H PRN 10/18/18 10/18/18 History lisinopril 20 mg PO DAILY 10/18/18 10/18/18 History naproxen 250 mg PO BID PRN 10/18/18 10/18/18 History Patient History Medical History Chronic back pain (Chronic) Pre-diabetes (Chronic) HTN (hypertension) (Chronic) Surgical History S/P tonsillectomy (Chronic) Family History Other Diabetes Heart disease Social History Preferred Language: Libyan Communication Ability: Unable [employer] Installation Manager Required: No Beliefs That Will Affect Care: None Current Living Situation: Spouse Feels Safe at Home: Yes Smoking Status: Never smoker Hx Alcohol Use: No Hx Substance Use: No Review of Systems Review of Systems: Unobtainable due to cognitive status, Unobtainable due to endotracheal tube and Unobtainable due to reduced consciousness Physical Exam Eyes: PERRL, conjunctivae normal, anicteric sclerae ENMT: external ear and nose normal, oropharynx normal Neck: trachea midline, no thyromegaly Respiratory: Chest rise symmetrical, bilateral breath sounds auscultated with coarse crackles bilaterally and diminished bilaterally in the bases Cardiovascular: Diminished radial and pedal pulses +1 bilateral, capillary refill delayed, regular sinus rhythm, S1-S2 auscultated, generalized edema Gastrointestinal (Abdomen): Abdomen soft and distended, normal bowel sounds all 4 quadrants Skin: Extremities cyanotic, bilateral cellulitis and lower extremities Neurologic: PERRLA, exam limited secondary to altered consciousness Psychiatric: Unable to assess Genitourinary: Indwelling Oro catheter present Results & Data Vital Signs (Past 12 Hours) Vital Signs Temp Pulse Pulse Resp BP BP Pulse Ox 10/18/18 13:28 90 23 98 10/18/18 12:09 72 28 H 118/89 10/18/18 11:31 65 20 98/68 L 90 10/18/18 11:26 63 21 94 10/18/18 10:45 64 22 10/18/18 10:32 67 27 H 110/85 10/18/18 10:30 67 21 90 10/18/18 10:22 67 25 H 101/77 98 10/18/18 10:15 69 21 98 10/18/18 10:12 100 10/18/18 10:11 100 10/18/18 10:00 70 26 H 10/18/18 09:53 70 26 H 95 10/18/18 09:46 74 24 128/97 95 10/18/18 09:45 76 24 88 L 10/18/18 09:33 84 28 H 98 10/18/18 09:29 80 29 H 155/95 H 93 10/18/18 09:25 37 C 76 18 155/95 H 98 Laboratory Results Laboratory Results - last 24 hr 10/18/18 10/18/18 10/18/18 10:08 10:08 10:08 WBC 11.47 H RBC 6.03 Hgb 14.6 POC Hgb Hct 47.3 POC Hct MCV 78.4 L MCH 24.2 L MCHC 30.9 L RDW Std Deviation 50.1 H RDW Coeff of Lauro 17.8 H Plt Count 195 MPV 10.5 H Neutrophils % (Manual) 83.5 Lymphocytes % (Manual) 4.3 Monocytes % (Manual) 6.1 Metamyelocytes % (Man) 6.1 Neutrophils # (Manual) 9.58 H Total Absolute Neuts 9.58 H Lymphocytes # (Manual) 0.49 L Total Abs Lymphocytes 0.49 L Monocytes # (Manual) 0.70 H Metamyelocytes # (Man) 0.70 H RBC Morphology Unremarkable ESR PT 18.8 H INR 1.9 H APTT 31.9 H PTT Ratio 1.2 POC pH POC pCO2 POC pO2 POC HCO3 POC Total CO2 POC Base Excess VBG pH VBG pCO2 VBG pO2 VBG HCO3 VBG O2 Saturation VBG Base Excess Barometric Pressure POC Sodium Sodium POC Potassium Potassium Chloride Carbon Dioxide Anion Gap BUN Creatinine Est Cr Clr Drug Dosing Est GFR ( Amer) Est GFR (Non-Af Amer) BUN/Creatinine Ratio Glucose Lactate 10.3 H* Calcium Phosphorus Magnesium Total Bilirubin Direct Bilirubin AST ALT Alkaline Phosphatase Total Creatine Kinase CK-MB (CK-2) CK/CKMB % Calc Troponin I C-Reactive Protein NT-Pro-B Natriuret Pep Total Protein Albumin Globulin Albumin/Globulin Ratio Lipase Procalcitonin Random Cortisol Specimen Hemolysis Urine Color Urine Appearance Urine pH Ur Specific [place] Urine Protein Urine Glucose (UA) Urine Ketones Urine Blood Urine Nitrite Urine Bilirubin Urine Urobilinogen Ur Leukocyte Esterase Urine WBC (Auto) Urine RBC (Auto) U Hyaline Cast (Auto) U Epithel Cells (Auto) Urine Bacteria (Auto) 10/18/18 10/18/18 10/18/18 10:08 10:08 10:08 WBC RBC Hgb POC Hgb Hct POC Hct MCV MCH MCHC RDW Std Deviation RDW Coeff of Lauro Plt Count MPV Neutrophils % (Manual) Lymphocytes % (Manual) Monocytes % (Manual) Metamyelocytes % (Man) Neutrophils # (Manual) Total Absolute Neuts Lymphocytes # (Manual) Total Abs Lymphocytes Monocytes # (Manual) Metamyelocytes # (Man) RBC Morphology ESR 16 H PT INR APTT PTT Ratio POC pH POC pCO2 POC pO2 POC HCO3 POC Total CO2 POC Base Excess VBG pH 7.12 L VBG pCO2 47 VBG pO2 31 VBG HCO3 15 VBG O2 Saturation < 60.0 VBG Base Excess -14.2 Barometric Pressure 732.5 POC Sodium Sodium 137 POC Potassium Potassium 4.2 Chloride 104 Carbon Dioxide 16 L Anion Gap 18.0 H BUN 25 H Creatinine 1.64 H Est Cr Clr Drug Dosing 53.3 Est GFR ( Amer) 50.5 Est GFR (Non-Af Amer) 43.5 BUN/Creatinine Ratio 15.1 Glucose 134 H Lactate Calcium 8.7 Phosphorus 5.4 H Magnesium 2.0 Total Bilirubin 2.2 H Direct Bilirubin AST 28 ALT 21 Alkaline Phosphatase 64 Total Creatine Kinase 121 CK-MB (CK-2) 5.5 H CK/CKMB % Calc 4.5 H Troponin I 0.901 H* C-Reactive Protein 6.78 H NT-Pro-B Natriuret Pep > 84853 H Total Protein 7.2 Albumin 3.5 Globulin 3.7 Albumin/Globulin Ratio 0.9 Lipase Procalcitonin Random Cortisol Specimen Hemolysis Urine Color Urine Appearance Urine pH Ur Specific [place] Urine Protein Urine Glucose (UA) Urine Ketones Urine Blood Urine Nitrite Urine Bilirubin Urine Urobilinogen Ur Leukocyte Esterase Urine WBC (Auto) Urine RBC (Auto) U Hyaline Cast (Auto) U Epithel Cells (Auto) Urine Bacteria (Auto) 10/18/18 10/18/18 10/18/18 10:08 11:25 13:17 WBC RBC Hgb POC Hgb 14.6 Hct POC Hct 43 MCV MCH MCHC RDW Std Deviation RDW Coeff of Lauro Plt Count MPV Neutrophils % (Manual) Lymphocytes % (Manual) Monocytes % (Manual) Metamyelocytes % (Man) Neutrophils # (Manual) Total Absolute Neuts Lymphocytes # (Manual) Total Abs Lymphocytes Monocytes # (Manual) Metamyelocytes # (Man) RBC Morphology ESR PT INR APTT PTT Ratio POC pH 6.93 L* POC pCO2 45 POC pO2 155 H POC HCO3 10 L POC Total CO2 11 L POC Base Excess -23.0 L VBG pH VBG pCO2 VBG pO2 VBG HCO3 VBG O2 Saturation VBG Base Excess Barometric Pressure POC Sodium 137 Sodium POC Potassium 3.5 Potassium Chloride Carbon Dioxide Anion Gap BUN Creatinine Est Cr Clr Drug Dosing Est GFR ( Amer) Est GFR (Non-Af Amer) BUN/Creatinine Ratio Glucose Lactate Calcium Phosphorus Magnesium Total Bilirubin Direct Bilirubin AST ALT Alkaline Phosphatase Total Creatine Kinase CK-MB (CK-2) CK/CKMB % Calc Troponin I C-Reactive Protein NT-Pro-B Natriuret Pep Total Protein Albumin Globulin Albumin/Globulin Ratio Lipase Procalcitonin 8.72 H Random Cortisol Specimen Hemolysis Urine Color [place] Urine Appearance Clear Urine pH 5.0 Ur Specific [place] 1.026 Urine Protein 1+ H Urine Glucose (UA) Trace H Urine Ketones Negative Urine Blood Negative Urine Nitrite Positive A Urine Bilirubin Negative Urine Urobilinogen Negative Ur Leukocyte Esterase Negative Urine WBC (Auto) 1-5 Urine RBC (Auto) 0-4 U Hyaline Cast (Auto) 5-10 H U Epithel Cells (Auto) 20-30 H Urine Bacteria (Auto) Negative 10/18/18 10/18/18 10/18/18 14:15 14:15 14:15 WBC RBC Hgb POC Hgb Hct POC Hct MCV MCH MCHC RDW Std Deviation RDW Coeff of Lauro Plt Count MPV Neutrophils % (Manual) Lymphocytes % (Manual) Monocytes % (Manual) Metamyelocytes % (Man) Neutrophils # (Manual) Total Absolute Neuts Lymphocytes # (Manual) Total Abs Lymphocytes Monocytes # (Manual) Metamyelocytes # (Man) RBC Morphology ESR PT INR APTT PTT Ratio POC pH POC pCO2 POC pO2 POC HCO3 POC Total CO2 POC Base Excess VBG pH VBG pCO2 VBG pO2 VBG HCO3 VBG O2 Saturation VBG Base Excess Barometric Pressure POC Sodium Sodium 142 POC Potassium Potassium 3.8 Chloride 107 Carbon Dioxide 10 L Anion Gap 25.0 H BUN 27 H Creatinine 1.76 H Est Cr Clr Drug Dosing 49.7 Est GFR ( Amer) 46.3 Est GFR (Non-Af Amer) 40.0 BUN/Creatinine Ratio 15.2 Glucose 69 L Lactate 16.2 H* Calcium 8.8 Phosphorus Magnesium Total Bilirubin 2.5 H Direct Bilirubin TNP AST 84 H ALT 41 Alkaline Phosphatase 63 Total Creatine Kinase CK-MB (CK-2) CK/CKMB % Calc Troponin I Cancelled 1.190 H* C-Reactive Protein NT-Pro-B Natriuret Pep Total Protein 5.1 L D Albumin 2.4 L Globulin 2.7 Albumin/Globulin Ratio 0.9 Lipase Procalcitonin Random Cortisol Specimen Hemolysis Urine Color Urine Appearance Urine pH Ur Specific [place] Urine Protein Urine Glucose (UA) Urine Ketones Urine Blood Urine Nitrite Urine Bilirubin Urine Urobilinogen Ur Leukocyte Esterase Urine WBC (Auto) Urine RBC (Auto) U Hyaline Cast (Auto) U Epithel Cells (Auto) Urine Bacteria (Auto) 10/18/18 10/18/18 15:26 15:26 WBC RBC Hgb POC Hgb Hct POC Hct MCV MCH MCHC RDW Std Deviation RDW Coeff of Lauro Plt Count MPV Neutrophils % (Manual) Lymphocytes % (Manual) Monocytes % (Manual) Metamyelocytes % (Man) Neutrophils # (Manual) Total Absolute Neuts Lymphocytes # (Manual) Total Abs Lymphocytes Monocytes # (Manual) Metamyelocytes # (Man) RBC Morphology ESR PT INR APTT PTT Ratio POC pH POC pCO2 POC pO2 POC HCO3 POC Total CO2 POC Base Excess VBG pH VBG pCO2 VBG pO2 VBG HCO3 VBG O2 Saturation VBG Base Excess Barometric Pressure POC Sodium Sodium POC Potassium Potassium Chloride Carbon Dioxide Anion Gap BUN Creatinine Est Cr Clr Drug Dosing Est GFR ( Amer) Est GFR (Non-Af Amer) BUN/Creatinine Ratio Glucose Lactate Calcium Phosphorus Magnesium Total Bilirubin Direct Bilirubin AST ALT Alkaline Phosphatase Total Creatine Kinase CK-MB (CK-2) CK/CKMB % Calc Troponin I C-Reactive Protein NT-Pro-B Natriuret Pep Total Protein Albumin Globulin Albumin/Globulin Ratio Lipase 72 L Procalcitonin Random Cortisol Pending Specimen Hemolysis Urine Color Urine Appearance Urine pH Ur Specific [place] Urine Protein Urine Glucose (UA) Urine Ketones Urine Blood Urine Nitrite Urine Bilirubin Urine Urobilinogen Ur Leukocyte Esterase Urine WBC (Auto) Urine RBC (Auto) U Hyaline Cast (Auto) U Epithel Cells (Auto) Urine Bacteria (Auto) Medications Administered Home Medications aspirin 81 mg PO DAILY 10/18/18 [History Confirmed 10/18/18] atenolol 50 mg PO DAILY 10/18/18 [History Confirmed 10/18/18] dimenhydrinate [Dramamine] 50 mg PO Q8H PRN 10/18/18 [History Confirmed 10/18/18] hydrocodone-acetaminophen 1 tab PO Q6H PRN 10/18/18 [History Confirmed 10/18/18] lisinopril 20 mg PO DAILY 10/18/18 [History Confirmed 10/18/18] naproxen 250 mg PO BID PRN 10/18/18 [History Confirmed 10/18/18] Active Medications Albuterol (Duoneb) 3 ml INH Q4H PRN PRN Reason: Dyspnea Stop: 11/17/18 12:16 Norepinephrine Bitartrate 8 mg (/ Dextrose) 508 mls @ 20.57 mls/hr IV .Q24H DEVEN; Protocol Stop: 11/17/18 13:08 Last Admin: 10/18/18 15:12 Dose: 0.1 mcg/kg/min, 41.2 mls/hr Documented by: Sodium Bicarbonate 150 meq/ (Dextrose) 1,150 mls @ 100 mls/hr IV .[id number] DEVEN Stop: 11/17/18 13:29 Last Admin: 10/18/18 15:13 Dose: 100 mls/hr Documented by: Epinephrine HCl 4 mg/ Dextrose 254 mls @ 8.23 mls/hr IV .Q24H DEVEN; Protocol Stop: 11/17/18 13:25 Last Admin: 10/18/18 13:25 Dose: 0.02 mcg/kg/min, 8.2 mls/hr Documented by: Propofol (Diprivan) 1,000 mg in 100 mls @ 3.24 mls/hr IV .Q24H DEVEN; Protocol Stop: 10/21/18 13:59 Last Admin: 10/18/18 15:13 Dose: 5 mcg/kg/min, 3.2 mls/hr Documented by: Piperacillin Sod/Tazobactam (Sod 4.5 gm/ Dextrose) 120 mls @ 30 mls/hr IV Q8H DEVEN; Protocol Stop: 10/20/18 12:59 Last Admin: 10/18/18 16:00 Dose: 30 mls/hr Documented by: Vasopressin 20 units/ Sodium (Chloride) 101 mls @ 12.12 mls/hr IV .[id number] DEVEN Stop: 11/17/18 15:14 Last Admin: 10/18/18 16:00 Dose: 0.04 unit/min, 12.1 mls/hr Documented by: Dobutamine HCl/Dextrose (Dobutamine / D5w) 500 mg in 250 mls @ 16.2 mls/hr IV .[id number] DEVEN; Protocol Stop: 11/17/18 15:27 Last Admin: 10/18/18 16:00 Dose: 5 mcg/kg/min, 16.2 mls/hr Documented by: Ioversol (Optiray 320 125ml) 120 ml IV ONCE PRN PRN Reason: Interaction Checking Stop: 10/22/18 11:47 Last Admin: 10/18/18 11:49 Dose: 120 ml Documented by: Levalbuterol HCl (Xopenex 1.25mg/3ml Neb) 1.25 mg INH Q4H PRN PRN Reason: Dyspnea Stop: 11/17/18 12:16 Miscellaneous (Icu Protocol For Hyperglycemia) 1 ea N/A PRN PRN; Protocol PRN Reason: Hyperglycemia Protocol Stop: 10/20/18 12:16 Miscellaneous (Icu Protocol For Hyperglycemia) 1 ea N/A PRN PRN; Protocol PRN Reason: Hyperglycemia Protocol Stop: 10/20/18 13:57 Miscellaneous Information (Consult) 1 ea N/A UD PRN PRN Reason: Consult Stop: 11/17/18 14:34 Miscellaneous Information (Consult) 1 ea N/A UD PRN PRN Reason: Consult Stop: 11/17/18 14:34 PG Care Time/CCT Total # of Minutes Spent Total Time Spent with Patient: Total time spent is greater than 50% in coordination of care (as documented) at patient's floor/unit and/or counseling patient: Critical Care Time: Yes Total Critical Care Time: 140 (1) Pulmonary edema Chronicity: acute Qualified Code(s): J81.0 - Acute pulmonary edema
[2018-10-18] MEDS ORDERED: PIPERACILL/TAZOBAC CONSULT ACTIVE PRN (14:35)
[2018-10-18] MEDS ORDERED: VANCOMYCIN CONSULT ACTIVE PRN (14:35)
[2018-10-18 14:48] LABS: Alanine Aminotransferase 41 U/L (12-78); Albumin Level 2.4 gm/dl (3.4-5.0); Aspartate Aminotransferase 84 U/L (15-37); BUN Creatinine Ratio 15.2 (10-20); Blood Urea Nitrogen 27 mg/dl (7-18); Calcium 8.8 mg/dl (8.5-10.1); Carbon Dioxide 10 mmol/L (21-32); Chloride 107 mmol/L (98-107); Creatinine Clr Calc Pharmacy 49.7 ml/min; Est GFR (African American) 46.3; Glucose 69 mg/dl (70-99); Potassium 3.8 mmol/L (3.5-5.1); Sodium 142 mmol/L (136-145)
[2018-10-18] MEDS ORDERED: SODIUM BICARB 8.4% INJ 50 MEQ/50 ML SYR IV STA ×3 (15:00→20:12)
--- NOTE | 2018-10-18 15:04 | Pharmacy Report ---
Pharmacy Abx Initial Consult - Date of Service October 18, 2018 - Pharmacy Dosing Scope Date of Consult: 10/18/18 Consultation requested by: SAVAGE Santiago Pharmacy is consulted to initiate vancomycin and Zosyn IV dosing therapy, order appropriate labs and adjust drug dose/frequency. - Subjective The patient is a 62 year old M admitted on 10/18/18 12:01. - Objective Height: 5 ft 7 in Weight: 108 kg Vital Signs (Past 12hrs): Vital Signs Temp Pulse Pulse Resp BP BP Pulse Ox 10/18/18 13:28 90 23 98 10/18/18 12:48 118 H 187/133 H 10/18/18 12:40 99 H 194/141 H 10/18/18 12:25 70 14 112/81 97 10/18/18 12:15 68 18 115/78 97 10/18/18 12:09 72 28 H 118/89 10/18/18 12:00 67 30 H 118/89 10/18/18 11:40 68 20 82/67 L 10/18/18 11:31 65 20 98/68 L 90 10/18/18 11:26 63 21 94 10/18/18 11:00 63 22 98/68 L 92 10/18/18 10:45 64 22 10/18/18 10:32 67 27 H 110/85 10/18/18 10:30 67 21 90 10/18/18 10:22 67 25 H 101/77 98 10/18/18 10:15 69 21 98 10/18/18 10:12 100 10/18/18 10:11 100 10/18/18 10:00 70 26 H 10/18/18 09:53 70 26 H 95 10/18/18 09:46 74 24 128/97 95 10/18/18 09:45 76 24 88 L 10/18/18 09:33 84 28 H 98 10/18/18 09:29 80 29 H 155/95 H 93 10/18/18 09:25 37 C 76 18 155/95 H 98 Lab Results (24hrs): Laboratory Tests (24 Hours) 10/18/18 10/18/18 10/18/18 14:15 10:08 10:08 WBC ESR Creatinine 1.76 H 1.64 H Est Cr Clr Drug Dosing 49.7 53.3 Total Creatine Kinase 121 C-Reactive Protein 6.78 H Procalcitonin 8.72 H 10/18/18 10/18/18 10:08 10:08 WBC 11.47 H ESR 16 H Creatinine Est Cr Clr Drug Dosing Total Creatine Kinase C-Reactive Protein Procalcitonin Micro Results: 10/18/18 12:10 Gram Stain - Final Leg,Right Wound Culture - Pending 10/18/18 09:35 Aerobic Blood Culture - Pending Blood Anaerobic Blood Culture - Pending 10/18/18 11:25 Urine Culture - Pending Urine,Indwelling Cath 10/18/18 10:08 Aerobic Blood Culture - Pending Blood Anaerobic Blood Culture - Pending - Risk Factors for Resistance * Unknown as no information available - Assessment & Plan Assessment 62 year old M admitted today with symptoms of cellulitis. No H&P available at this time. Patient was a code blue in the ED earlier and now admitted to the ICU, currently intubated. No prior admissions to determine history or baseline renal function. Empiric antibiotics are being started for sepsis, in the form of vancomycin and Zosyn. Lactate 10.3, procal 8.7. SCr initially 1.64 and has increased to 1.76. Plan Vancomycin IV * Estimated PK Parameters: Vd 0.61 L/kg, [place] 0.048 hr-1, t1/2 14.4 hr * Loading dose: 2500 mg (23 mg/kg) - given in the ED * No maintenance dose ordered d/t changing renal function * Random level ordered for 10/19/18 with AM labs - further dosing to be determined after this Piperacillin/tazobactam * 4.5 g bolus administered over 30 minutes, then 4.5 g IV extended infusion every 8 hours for CrCl greater than 20 mL/min * Aggressive dosing selected due to critically ill status/BMI 35 or more/history of cystic fibrosis. Pharmacy will continue to follow and will adjust dose/frequency as necessary. Thank you.
[2018-10-18 15:06] LABS: Albumin Globulin Ratio 0.9 (0.9-2); Alkaline Phosphatase 63 U/L (45-117); Bilirubin,Total 2.5 mg/dl (0.2-1); Globulin 2.7 gm/dl (2.5-4.0); Total Protein 5.1 gm/dl (6.4-8.2)
[2018-10-18] MEDS: SODIUM BICARBONATE 8.4% 150 MEQ in DEXTROSE 5% 1,000 ML IV SCH (15:13)
[2018-10-18] MEDS ORDERED: DOBUTamine / D5W 500 MG/250 ML BAG IV SCH (15:28)
[2018-10-18] MEDS: PIPERACILLIN/TAZOBACTAM 4.5 GM in DEXTROSE 5% 100 ML IV SCH (16:00)
[2018-10-18] MEDS: VASOPRESSIN 20 UNITS in 0.9 % SODIUM CHLORIDE 100 ML IV SCH (16:00)
--- NOTE | 2018-10-18 16:12 | XRay Report ---
XR tibia fibula RT 2V, XR tibia fibula LT 2V CLINICAL HISTORY: Bilateral lower extremity wounds. COMPARISON STUDY: None. FINDINGS: No fracture or dislocation within the right or left lower leg. Bilateral diffuse soft tissu e swelling/edema. No radiopaque foreign bodies. No evidence for osteomyelitis. IMPRESSION: Diffuse soft tissue swelling/edema within the bilateral lower extremities. No underlying bony abnormality. Electronically signed by: Mark Kaplan M.D. 10/18/2018 4:11 PM
[2018-10-18 17:09] LABS: iSTAT Allen Test Pass; iSTAT Art Bld Gas pCO2 Correct 21 mmHg (35-46); iSTAT Art Bld Gas pH Corrected 7.189 (7.35-7.45); iSTAT Arterial Blood Gas HCO3 8 meg/L (19-24); iSTAT Arterial Blood Gas pCO2 23 mmHg (35-46); iSTAT Arterial Blood Gas pH 7.17 (7.35-7.45); iSTAT Carbon Dioxide 9 mEq/l (24-31); iSTAT Site Art Line
[2018-10-18 19:49] LABS: Hematocrit (blood only) 41.2 % (42-52); Hemoglobin 12.2 g/dL (14.0-18.0); Mean Corpuscular Hgb Conc 29.6 g/dL (32-36); Mean Corpuscular Volume 80.2 fL (80-100); Nucleated RBC # (auto) 0.21 K/uL (0-0); Nucleated RBC % (auto) 2.4 %; Platelet Count 143 K/uL (130-400); RDW Coefficient of Variation 18.3 % (11.5-14.5); RDW Standard Deviation 53.3 fL (36.4-46.3); Red Blood Count 5.14 M/uL (4.7-6.1); White Blood Count 8.88 K/uL (4.8-10.8)
[2018-10-18 20:12] LABS: BUN Creatinine Ratio 15.2 (10-20); Calcium 8.1 mg/dl (8.5-10.1); Creatinine Clr Calc Pharmacy 44.6 ml/min; Est GFR (African American) 40.7; Est GFR (Non-African American) 35.1; Potassium 4.3 mmol/L (3.5-5.1)
[2018-10-18] MEDS ORDERED: CALCIUM CHLORIDE 10% 1,000 MG in SODIUM CHLORIDE 0.9% 50 ML IV STA (20:14)
[2018-10-18 20:15] LABS: Basophils # (auto) 0.03 K/uL (0-0.2); Basophils % (auto) 0.3 %; Dohle Bodies 1+; Echinocytes 1+; Eosinophils # (auto) 0.01 K/uL (0-0.5); Eosinophils % (auto) 0.1 %; Immature Granulocytes # (auto) 0.02 K/uL (0.00-0.02); Immature Granulocytes % (auto) 0.2 %; Lymphocytes # (auto) 1.39 K/uL (1.2-3.4); Lymphocytes % (auto) 15.7 %; Monocytes # (auto) 0.75 K/uL (0.11-0.59); Monocytes % (auto) 8.4 %; Neutrophils # (auto) 6.68 K/uL (1.4-6.5); Neutrophils % (auto) 75.3 %; Polychromasia 1+; Toxic Granulation 1+; Toxic Vacuolation 2+
[2018-10-18] MEDS ORDERED: SODIUM BICARB 8.4% INJ 50 MEQ/50 ML SYR ONE (20:15)
[2018-10-18] MEDS ORDERED: HYDROCORTISONE SOD SUCCINATE 100 MG/2 ML VIAL IV STA (20:28)
[2018-10-18] MEDS ORDERED: MIDAZOLAM HCL 1 MG/ML 2ML VIAL IV PRN (20:36)
[2018-10-18] MEDS ORDERED: ACETAMINOPHEN 1,000 MG/100 ML VIAL IV PRN (20:44)
--- NOTE | 2018-10-18 20:49 | Critical Care Progress Note ---
Date of Service October 18, 2018 Subjective 1930: Patient was noted to have systolic blood pressures in the 60s despite vaso active support x4. Reassessment of labs was ordered including ABG. Concerns for worsening metabolic acidosis with a serum CO2 of 9. Patient received 2 A of sodium bicarbonate as well as calcium chloride. This did result in impressive improvement in blood pressure. In addition, patient was provided stress dose steroids in the form of Solu-Cortef as well as a combination of vitamin C and thiamine. Vasopressors were reassessed and adjustments were made per my discussion with nursing staff. Orders were made for serial labs throughout the night. I had a discussion with patient's family at bedside during this episode of hypotension. They were informed of all up-to-date labs at this point. Discussed that renal function appears to be worsening as does acidosis in the setting of severe sepsis. They are aware at this time and still unwilling to make decision whether to continue with care versus proceed with comfort measures. We will reassess as the night continues. They are adamant that they would not wish to go heroic measures including chest compressions or electrocardioversion. I have personally spent 35 minutes of critical care time in the direct management of this patient. This is a life/limb threatening event. This includes time spent evaluating patient, direct bedside care, chart review, placing orders, interpretation of diagnostic studies, discussion with consultants, patient, and family members, as well as other required patient management activities. This time is exclusive of all separately billable procedures, and teaching time and separate from and in addition to any other critical care service time. Results & Data Vital Signs (Past 12 Hours) Vital Signs Temp Pulse Pulse Resp BP BP Pulse Ox 10/18/18 20:36 70 23 91 10/18/18 18:30 94 H 10/18/18 18:25 96 H 102/67 10/18/18 18:15 98 H 10/18/18 18:00 99 H 10/18/18 17:58 35.6 C L 99 H 26 H 129/66 10/18/18 17:45 100 H 10/18/18 17:40 100 H 26 H 98 10/18/18 17:30 99 H 10/18/18 17:00 96 H 129/91 10/18/18 16:44 81 104/79 10/18/18 16:30 81 10/18/18 16:01 83 121/100 10/18/18 16:00 83 10/18/18 15:30 81 10/18/18 15:01 68 10/18/18 15:00 69 10/18/18 14:52 68 74/47 L 10/18/18 14:31 74 70/59 L 10/18/18 14:30 74 10/18/18 14:00 85 87/64 L 10/18/18 13:56 91 H 100/75 10/18/18 13:50 76 32 H 100 10/18/18 13:30 88 87 L 10/18/18 13:28 90 23 98 10/18/18 12:48 118 H 187/133 H 10/18/18 12:40 99 H 194/141 H 10/18/18 12:25 70 14 112/81 97 10/18/18 12:15 68 18 115/78 97 10/18/18 12:09 72 28 H 118/89 10/18/18 12:00 67 30 H 118/89 10/18/18 11:40 68 20 82/67 L 10/18/18 11:31 65 20 98/68 L 90 10/18/18 11:26 63 21 94 10/18/18 11:00 63 22 98/68 L 92 10/18/18 10:45 64 22 10/18/18 10:32 67 27 H 110/85 10/18/18 10:30 67 21 90 10/18/18 10:22 67 25 H 101/77 98 10/18/18 10:15 69 21 98 10/18/18 10:12 100 10/18/18 10:11 100 10/18/18 10:00 70 26 H 10/18/18 09:53 70 26 H 95 10/18/18 09:46 74 24 128/97 95 10/18/18 09:45 76 24 88 L 10/18/18 09:33 84 28 H 98 10/18/18 09:29 80 29 H 155/95 H 93 10/18/18 09:25 37 C 76 18 155/95 H 98 PG Care Time/CCT Total # of Minutes Spent Total Time Spent with Patient: Total time spent is greater than 50% in coordination of care (as documented) at patient's floor/unit and/or counseling patient: Critical Care Time: Yes Total Critical Care Time: 35
[2018-10-18] MEDS: ASCORBIC ACID 1,500 MG, THIAMINE HCL 100 MG in 0.9 % SODIUM CHLORIDE 100 ML IV SCH (21:05)
[2018-10-18 21:27] LABS: Troponin I 2.14 ng/ml (0-0.045)
[2018-10-18] MEDS ORDERED: HYDROCORTISONE SOD 100 MG in SYRINGE 0 ML IV STA (21:42)
[2018-10-18] MEDS: fentaNYL citrate 100 MCG/2 ML VIAL IV PRN (23:23)
[2018-10-19] MEDS ORDERED: SODIUM BICARB 8.4% INJ 50 MEQ/50 ML SYR IV STA (00:08)
[2018-10-19] MEDS ORDERED: SODIUM BICARB 8.4% INJ 50 MEQ/50 ML SYR ONE (00:12)
[2018-10-19 00:15] LABS: iSTAT Art Bld Gas pCO2 Correct 27 mmHg (35-46); iSTAT Art Bld Gas pH Corrected 7.195 (7.35-7.45); iSTAT Arterial Blood Gas HCO3 10 meg/L (19-24); iSTAT Arterial Blood Gas pCO2 25 mmHg (35-46); iSTAT Arterial Blood Gas pH 7.22 (7.35-7.45); iSTAT Carbon Dioxide 11 mEq/l (24-31); iSTAT FiO2 60 %; iSTAT Site Art Line
[2018-10-19] MEDS: VASOPRESSIN 20 UNITS in 0.9 % SODIUM CHLORIDE 100 ML IV SCH (00:33)
[2018-10-19] MEDS: SODIUM BICARBONATE 8.4% 150 MEQ in DEXTROSE 5% 1,000 ML IV SCH (00:33)
[2018-10-19 00:46] LABS: BUN Creatinine Ratio 15.3 (10-20); Calcium 6.9 mg/dl (8.5-10.1); Est GFR (African American) 42.2; Est GFR (Non-African American) 36.4; Potassium 4.1 mmol/L (3.5-5.1)
[2018-10-19] MEDS ORDERED: CALCIUM CHLORIDE 10% 1,000 MG in SODIUM CHLORIDE 0.9% 50 ML IV STA (00:58)
[2018-10-19] MEDS: ASCORBIC ACID 1,500 MG, THIAMINE HCL 100 MG in 0.9 % SODIUM CHLORIDE 100 ML IV SCH (02:03)
[2018-10-19] MEDS: PIPERACILLIN/TAZOBACTAM 4.5 GM in DEXTROSE 5% 100 ML IV SCH (02:03)
[2018-10-19] MEDS ORDERED: HYDROCORTISONE SOD 50 MG in SYRINGE 0 ML IV SCH (03:00)
[2018-10-19] MEDS: fentaNYL citrate 100 MCG/2 ML VIAL IV PRN (03:59)
[2018-10-19 04:19] LABS: Hematocrit (blood only) 43.4 % (42-52); Hemoglobin 13.2 g/dL (14.0-18.0); Mean Corpuscular Hgb Conc 30.4 g/dL (32-36); Mean Corpuscular Volume 78.1 fL (80-100); Nucleated RBC # (auto) 0.34 K/uL (0-0); Nucleated RBC % (auto) 2.7 %; Platelet Count 134 K/uL (130-400); RDW Coefficient of Variation 18.3 % (11.5-14.5); Red Blood Count 5.56 M/uL (4.7-6.1); White Blood Count 12.79 K/uL (4.8-10.8)
[2018-10-19 04:23] LABS: iSTAT Art Bld Gas pCO2 Correct 32 mmHg (35-46); iSTAT Art Bld Gas pH Corrected 7.223 (7.35-7.45); iSTAT Arterial Blood Gas HCO3 13 meg/L (19-24); iSTAT Arterial Blood Gas pCO2 30 mmHg (35-46); iSTAT Arterial Blood Gas pH 7.25 (7.35-7.45); iSTAT Carbon Dioxide 14 mEq/l (24-31); iSTAT FiO2 50 %; iSTAT Site Art Line
[2018-10-19 04:39] LABS: INR 2.9 (0.9-1.1); Prothrombin Time 27.9 Seconds (9.0-12.0)
[2018-10-19 04:45] LABS: Basophils # (auto) 0.02 K/uL (0-0.2); Basophils % (auto) 0.2 %; Dohle Bodies 1+; Echinocytes 1+; Eosinophils # (auto) 0.01 K/uL (0-0.5); Eosinophils % (auto) 0.1 %; Immature Granulocytes % (auto) 0.8 %; Lymphocytes # (auto) 1.73 K/uL (1.2-3.4); Lymphocytes % (auto) 13.5 %; Monocytes # (auto) 1.52 K/uL (0.11-0.59); Monocytes % (auto) 11.9 %; Neutrophils # (auto) 9.41 K/uL (1.4-6.5); Neutrophils % (auto) 73.5 %; Toxic Vacuolation 1+
[2018-10-19] MEDS ORDERED: MoRPHine SULF/NSS 100 MG/100 ML BAG IV SCH (05:00)
[2018-10-19 05:03] LABS: Albumin Level 2.4 gm/dl (3.4-5.0); BUN Creatinine Ratio 13.5 (10-20); Bilirubin,Total 2.5 mg/dl (0.2-1); Calcium 8.4 mg/dl (8.5-10.1); Creatinine Clr Calc Pharmacy 36.7 ml/min; Est GFR (African American) 32.2; Est GFR (Non-African American) 27.8; Magnesium 1.6 mg/dl (1.8-2.4); Phosphorus 7.2 mg/dl (2.5-4.9); Potassium 4.2 mmol/L (3.5-5.1); Total Protein 5.6 gm/dl (6.4-8.2); Troponin I 13.4 ng/ml (0-0.045)
--- NOTE | 2018-10-19 05:03 | Critical Care Progress Note ---
Date of Service October 19, 2018 Subjective Multiple conversations were had with the patient's family at bedside throughout the night. The patient's continues to struggle with discontinuation of care as she reports that she feels as though he would not have wanted to be intubated and undergoing compressions, however she did consent to all of these things earlier today. She adamantly reports that the patient would not wish to undergo amputation of the leg if felt necessary. In addition, she does not feel as though he would wish to undergo hemodialysis. Despite this, she struggles with decisions to discontinue care. At this point, I explained that with worsening renal function, poor urine output, and condition, the likelihood of need to undergo extensive surgical evaluation as well as need for escalation of care beyond what is being provided to this point is inevitable. She continued to struggle with this internally. When the patient was being bath by nursing staff, the patient did have sloughing of the LEFT lower extremity. Previous evaluation of the leg demonstrated pulselessness to the groin. I had initially ordered arterial duplex to confirm suspicion of acute ischemic leg, but after this, the patient's is concerned and does not wish to proceed any further at this time. After conversation with the patient's , she is requesting that we proceed with comfort measures only. We will de-escalate care at this point including discontinuation of pressors and initiation of morphine for comfort. Family including daughter and are in agreement with this. All questions were answered. We will proceed with goals of comfort at this time. Family requesting extubation. Patient extubated at 0525. Patient remained comfortable throughout the transition to . Asystole noted on the monitor at 0541. I have personally spent 35 minutes of critical care time in the direct tanner gement of this patient. This is a life/limb threatening event. This includes time spent evaluating patient, direct bedside care, chart review, placing orders, interpretation of diagnostic studies, discussion with consultants, patient, and family members, as well as other required patient management activities. This time is exclusive of all separately billable procedures, and teaching time and separate from and in addition to any other critical care service time. Results & Data Vital Signs (Past 12 Hours) Vital Signs Temp Pulse Pulse Resp BP BP BP 10/19/18 03:00 38.7 C H 104 H 31 H 141/96 H 191/76 H 10/19/18 02:26 104 H 26 H 10/19/18 02:00 38.6 C H 103 H 26 H 126/93 174/70 H 10/19/18 01:00 38.6 C H 102 H 30 H 136/85 182/71 H 10/19/18 00:00 38.6 C H 89 30 H 112/76 82/48 L 10/18/18 23:30 104 H 23 10/18/18 23:00 38.4 C H 102 H 27 H 127/94 131/65 10/18/18 22:00 38.2 C H 102 H 27 H 113/72 137/62 10/18/18 21:00 38.0 C H 99 H 30 H 126/58 L 105/69 10/18/18 20:36 70 23 10/18/18 20:00 38.8 C H 88 33 H 66/50 L 10/18/18 18:30 94 H 10/18/18 18:25 96 H 102/67 10/18/18 18:15 98 H 10/18/18 18:00 99 H 10/18/18 17:58 35.6 C L 99 H 26 H 129/66 10/18/18 17:45 100 H 10/18/18 17:40 100 H 26 H 10/18/18 17:30 99 H Pulse Ox 10/19/18 03:00 95 10/19/18 02:26 10/19/18 02:00 98 10/19/18 01:00 97 10/19/18 00:00 99 10/18/18 23:30 96 10/18/18 23:00 98 10/18/18 22:00 97 10/18/18 21:00 93 10/18/18 20:36 91 10/18/18 20:00 99 10/18/18 18:30 10/18/18 18:25 10/18/18 18:15 10/18/18 18:00 10/18/18 17:58 10/18/18 17:45 10/18/18 17:40 98 10/18/18 17:30 PG Care Time/CCT Total # of Minutes Spent Total Time Spent with Patient: Total time spent is greater than 50% in coordination of care (as documented) at patient's floor/unit and/or counseling p atient: Critical Care Time: Yes Total Critical Care Time: 35
[2018-10-19] MEDS ORDERED: LORazepam 0.5 MG/1 ML VIAL IV PRN (05:09)
[2018-10-19] MEDS ORDERED: SODIUM BICARB 8.4% INJ 50 MEQ/50 ML SYR IV ONE (05:40)
[2018-10-19] MEDS ORDERED: CALCIUM CHLORIDE 10% 10 ML SYR IV ONE (05:40)
--- NOTE | 2018-10-19 05:55 | Death Summary ---
Date of Service October 19, 2018 Pronouncement Note Contributing Factors (1) Metabolic acidosis: (2) Chronic back pain: (3) HTN (hypertension): (4) Cardiogenic shock: (5) Pulmonary edema: (6) Respiratory distress: Additional Data Attending physician: Franca Dickson MD Date: 10/19/2018 Time: 05 I was contacted by nursing staff regarding the patients declining status and concerns for imminent demise. In short, patient initially presented to the emergency department severely septic with severe metabolic acidosis requiring endotracheal intubation. Patient had PEA arrest x2 during resuscitative efforts. He was placed on broad- spectrum antibiotics as well as vasoactive's x4. Throughout the night, the patient received multiple rounds of bicarbonate, calcium chloride, and additional medications. Despite this, the patient continued to show clinical decline. Throughout conversations with the family, they struggled with continuing care as they report that he would not wish to have proceeded with most interventions in the first place. After reassessments and continued decline as well as confirmation with changes in lab and little to no responsiveness, decision was made by family to withdrawal care and proceed to comfort measures only. Patient was placed on morphine drip for comfort and was terminally extubated. Assessment: I presented to the patients room for evaluation. Upon assessment, the patient was found to be in a terminal state. Pupils were fixed and dilated without response. No palpable pulses appreciated. No spontaneous breaths noted. Heart sounds were absent. No response to painful stimuli. Time of : 540 as pronounced by myself. Family ( and daughter) present at bedside. Appropriate response to grief appreciated. Condolences provided. Questions were addressed and emotional support was provided. Patients primary service was contacted and made aware of patient demise. Pronouncement section of the Certificate was filled out and signed by myself. Cause of : Primary - Severe Sepsis with Septic Shock Secondary - Metabolic Acidosis Contributing Causes of - PEA Arrest x2, ARF, cardiogenic shock. Please feel free to contact me with any questions regarding the above-mentioned course.
[2018-10-19 12:37] LABS: iSTAT Art Bld Gas pH Corrected 7.172 (7.35-7.45); iSTAT Arterial Blood Gas pCO2 35 mmHg (35-46); iSTAT Arterial Blood Gas pH 7.16 (7.35-7.45); iSTAT Hematocrit 41 % (42-52); iSTAT Hemoglobin 13.9 g/dl (14.0-18.0); iSTAT Potassium 3.5 mEq/L (3.3-5.0); iSTAT Sodium 139 mEq/L (135-144)
[2018-10-19 12:38] LABS: iSTAT Art Bld Gas pCO2 Correct 33 mmHg (35-46); iSTAT Arterial Blood Gas HCO3 12 meg/L (19-24); iSTAT Carbon Dioxide 13 mEq/l (24-31); iSTAT FiO2 100 %
[2018-10-19 12:39] LABS: iSTAT Sample Type Arterial; iSTAT Site Art Line
--- NOTE | 2018-10-19 13:01 | Discharge Summary ---
Date of Service October 19, 2018 Admission HPI Per Admitting Provider This is a 62-year-old male with a PMH of HTN, prediabetes and chronic back pain who presents with shortness of breath for the past few days. History primarily obtained from at bedside due to patient wearing BiPAP. Patient began to mention that he was short of breath the past few days. Unable to lay flat last evening. Was fine prior to that and able to play with grandchildren at the end of last week. Has also had bilateral lower extremity wounds and swelling for the past few months but was not evaluated by primary care provider. Wounds have been painful and itchy but patient able to ambulate without assistive devices. Family denies any altered mental status or confusion prior to arrival. was able to convince patient to come in for evaluation in ED today. No history of heart disease, congestive heart failure or blood clots in legs or lungs. No history of tobacco, alcohol or drug use. Initially hypoxic with dusky appearance of extremities. Started on BiPAP with improved oxygen saturation in mid 90s. Patient somewhat agitated with BiPAP mask but able to open eyes spontaneously. Unable to obtain ROS due to patient's agitated state. Chest CTA study limited due to respiratory and somatic motion. No evidence for a major pulmonary embolus based on the study as discussed above. Small right pleural effusion with evidence for upper abdominal ascites/body wall anasarca. Moderate prominence of pulmonary vasculature as well as parenchymal markings consistent with a component of congestive failure/pulmonary edema. CT abd/pelvis without evidence of bowel obstruction or free air. Common femoral vein filling defects versus flow related artifact, ascitic fluid within a small R inguinal hernia. Lactic acid significantly elevated at 10.3. Mild leukocytosis of 11.47, VBG pH with acidosis at 7.12, anion gap of 18, BNP >35,000. Patient was given IV Lasix 40mg and 1mg Ativan in ED prior to my evaluation. Called Dr. Casey in ICU, who agreed to evaluate patient and manage in unit. Was started on empiric vancomycin and Zosyn in setting of sepsis. Also recommended additional imaging of bilateral lower legs. Principal Diagnosis Patient Cause of : Primary - Severe Sepsis with Septic Shock Secondary - Metabolic Acidosis Contributing Causes of - PEA Arrest x2, ARF, cardiogenic shock. Discharge Exam Patient Discharge Data Allergies Allergy/AdvReac Type Severity Reaction Status Date / Time No Known Allergies Allergy Unverified 10/18/18 10:31 Consultations 10/18/18 11:14 ED Decision to Admit Stat 10/18/18 12:07 Consult Motor Equipment Commanding Officer Stat 10/18/18 12:17 Consult Case Management - Discharge Planning Routine 10/18/18 13:58 Consult Case Management - Discharge Planning Routine Ordered Studies 10/18/18 10:51 CT abd pelvis IV con only Stat CT angio chest PE protocol Stat Hospital Course (1) Septic shock: admitted with severe sepsis with septic shock -SBP 90s, AMS, WBC of 11.4, lactic acid of 10.3, procal of 8 -In the setting of untreated BLE wounds x 3 months -Patient was admitted to ICU, required intubation for respiratory support, had 2X PEA cardiac arrest in ER while putting central line, arterial line ICU team managed to revive pt Patient developed profound metabolic acidosis, lactic acid worsened at 1016, - lack of perfusion secondary to cardiogenic shock Echo shows severely reduced EF of 30% Patient treated with broad-spectrum antibiotic Required multiple pressor supports IV bicarb Clinically continued to decline with worsening of hemodynamics, metabolic/electrolyte instability Very poor prognosis, with very poor outcome/severe anoxic encephalopathy After discussion with family members, and ICU team Family wanted to withdraw support As per " all his life patient has been very active" He would not have wanted to be revived this way, and be in persisted vegetative state if miraculously survives this severe ordeal All pressors, antibiotics, was withdrawn Patient started on IV and morphine drip for comfort Terminally extubated while on IV morphine drip Family member remained at bedside Patient (2) Metabolic acidosis: Severe metabolic acidosis: The setting of severe sepsis shock/cardiogenic shock/acute hypercapnic respiratory failure -Related to x2 PEA cardiac arrest -Received a total of 6 AMPs of bicarb followed with bicarb drip -Repeat shows continued worsening of acidosis pH of 6.9. Extremely poor prognosis Patient family and daughter decided to withdraw care and transition to comfort measure Patient soon after extubation while on IV morphine drip for comfort (3) PEA (Pulseless electrical activity): Possible secondary to severe metabolic acidosis electrolyte D management severe septic shock cardiogenic shock Became bradycardic and then developed PEA during intubation process and then arterial line placement in ED. Code Blue was called twice -CPR and epi given during code blue with ROSC achieved both times -Initial troponin 0.9, troponin elevated 13.2 following cardiac arrest Bedside echo with severely reduced LV function with EF: 25-30%. RV systolic function normal Multiorgan failure noted, acute renal failure /anuric -/shock liver leading to coagulopathy Family does not want to dialysis Did not want escalation of care as patient continued to decline with maximum support in ICU Poor prognosis Family agreed to withdrawal care/extubated, transition to comfort care Patient in ICU while on comfort measures (4) Acute respiratory failure: (5) Acute decompensated heart failure: With severe sepsis, septic shock, severe metabolic acidosis leading to cardiogenic arrest, cardiogenic shock - - -Bedside echo with severely reduced LV function with EF: 25-30%. RV systolic function normal -No known history of CHF Patient went to PEA cardiac arrest twice Extremely poor prognosis (6) Acute kidney injury: ATN, oliguric renal failure Secondary to acute renal failure with severe hypotension septic shock, cardiogenic shock Minimum urine output noted in spite of IV hydration, pressure support to keep organ perfusion ICU team discussed with , does not want dialysis Given severe hypotension, hemodynamic instability, on multiple pressor support, patient is not a candidate for dialysis as well Total Time Total Time Spent Total Time Spent (In Minutes): Patient Discharge Plan Discharge Items Patient Disposition: Admission Data Admit Date/Time: 10/18/18 12:01 Service: Intensive Care Unit Other DC Date/Time DO NOT enter until pt leaves facility: 10/19/18 05:41
[2018-10-20 03:56] LABS: iSTAT Creatinine 1.1 mg/dl (0.6-1.3); iSTAT Hemoglobin 17.3 g/dl (14.0-18.0); iSTAT Ionized Calcium 1.04 mmol/l (1.12-1.32); iSTAT Potassium 5.4 mEq/L (3.3-5.0)
== END 2018-10-19 05:41 | disposition expired | DRG 853 ==
LOC: ED 09:22 → 1E 12:01
DX: E87.2 Acidosis; R57.0 Cardiogenic shock; Z82.49 Family history of ischemic heart disease and other diseases of the circulatory system; R00.1 Bradycardia, unspecified; G89.29 Other chronic pain; I10 Essential (primary) hypertension; J96.00 Acute respiratory failure, unspecified whether with hypoxia or hypercapnia; R65.21 Severe sepsis with septic shock; R18.8 Other ascites; M54.9 Dorsalgia, unspecified; Z79.82 Long term (current) use of aspirin; A41.9 Sepsis, unspecified organism; R73.03 Prediabetes